=== PATIENT | female | born 1930 | race Caucasian/White ===

== ENCOUNTER → 2016-03-30 12:59 | Outpatient (CLI) | payer MEDICARE ==
[2012-10-15 09:25] VITALS: BMI 27.8
[~2016-03-30 12:59] MED LIST: ASPIRIN EC81 MG PO; BENICAR HCT 20-1 TA1 PO; CALCIUM 600+D T1 TA1; CORDARONE200 MG PO; LOPRESSOR25 MG PO; MULTI-DAY VITAM1 TAB PO; PROTONIX40 MG PO; SINGULAIR10 MG PO; VALIUM 2 MG TAB2 MG OR; VENTOLIN HFA18 GM; XARELTO15 MG PO
== END | disposition home or self-care (01) ==
LOC: D.RAD 12:59
DX: R13.10 Dysphagia, unspecified (principal)

== ENCOUNTER 2016-06-13 08:00 | Outpatient (CLI) | payer MEDICARE ==
[~2016-06-13] VITALS: Ht 162.6 cm; Wt 72.7 kg
--- NOTE | ~2016-06-13 | HEMODYNAMI ---
PATIENT:JESE SQUIRES MEDICAL RECORD: [id number] : 30 LOCATION:[facility] ADMISSION DATE: 06/13/16 Generatedon:06/13/201612:26 Patient name: JESE SQUIRES Patient #: [id number] SSN: D OB: 1930 Date of study: 06/13/2016 Page: Of Hemodynamic Procedure Report Patient Data Patient Demographics Procedure consent was obtained First Name: JESE Gender: Female Last Name: SHAW : 1930 [facility] Initial: ISABELLA Age: 85 year(s) Patient #: [id number] Race: Unknown Additional ID: [id number] Contact details [address]: [address] [place] [address] State: [place] City: [place] Zip code: [address] Past Medical History Allergies Allergen Reaction Date Comments Reported Other allergy 06/13/2016 Ketorolac tromethamine (from Toradol), predinisone Codeine 06/13/2016 Penicillins 06/13/2016 Sulfa drugs 06/13/2016 Admission Admission Data Admission Date: 06/13/2016 Admission Time: 8:00 Height (in.): 64 BSA: 1.78 (m2) Height (cm.): 162.56 BMI: 27.46 (kg/m2) Weight (lbs.): 160 Weight (kg.): 72.57 Lab Results Lab Result Date: 06/13/2016 Lab Result Time: 0:00 Biochemistry Name Units Result Min Max BUN mg/dl 10 --(-*--)-- 7 18 CK-MB ng/ml 2 --(--*-)-- 0 3.6 Creatinine mg/dl 0.9 --(-*--)-- 0.6 1.3 Creatinine l 67 --(*---)-- 21 215 Kinase Troponin l ng/ml 0.017 --(-*--)-- 0 0.06 CBC Name Units Result Min Max Hematocrit % 30.2 *-(----)-- 42 54 Hemoglobin g/dl 9.8 *-(----)-- 13.5 17.5 Procedure Procedure Types Cath Procedure Diagnostic Procedure [facility] w/Coronaries FFR/IVUS Intra-Coronary IVUS Initial Miscellaneous Procedures Moderate Sedation up to 15 minutes Procedure Description Procedure Date Procedure Date: 06/13/2016 Procedure Start Time: 12:11 Procedure End Time: 12:25 Procedure Staff Name Function Daniel Liu MD Performing Physician Moe Candelaria RT Scrub Salvatore Ray RN Nurse Melissa Guzman RT Monitor Procedure Data Cath Procedure Fluoroscopy Diagnostic fluoroscopy Total fluoroscopy Time: 3.1 time: 3.1 min min Diagnostic fluoroscopy Total fluoroscopy dose: 378 dose: 378 mGy mGy Contrast Material Contrast Material Type Amount (ml) Isovue 300 78 Entry Location Entry Primary Successful Side Size Upsize Upsize Entry Closure Vila ccessful Closure Location (Fr) 1 (Fr) 2 (Fr) Remarks Device Remarks Radial Right 6 Fr Mechanical No Charge artery Short Compression Medtronic Tracelet device used. Estimated blood loss: 5 ml Diagnostic catheters Device Type Used For End Catheter Placement Terumo 5Fr [place] 110cm LV Angiography catheter Terumo 5Fr [place] 110cm Left Coronary catheter Angiography Terumo 5Fr [place] 110cm Right Coronary catheter Angiography Procedure Complications No complications Procedure Medications Medication Administration Route Dosage Oxygen NC 2 l/min Heparin Flush Bag added to field 2 bags (1000units/500ml NS) 0.9% NaCl I.V. 100 ml/hr Radial Cocktail added to field 1 syringe (Verapomil 2mg/Nitro 400mcg/Heparin 1500units) Fentanyl I.V. 25 mcg Versed I.V. 0.5 mg Fentanyl I.V. 25 mcg Versed I.V. 0.5 mg Radial Cocktail I.A. 1 syringe (Verapomil 2mg/Nitro 400mcg/Heparin 1500units) Fentanyl I.V. 25 mcg Versed I.V. 0.5 mg Fentanyl I.V. 25 mcg Versed I.V. 0.5 mg Hemodynamics Rest BSA: 1.78 (m2) HGB: 9.8 (g/dl) O2 Consumption: Estimated: 159.92 (ml/min) O2 Con sumption indexed: Estimated:89.84 (ml/min/m) Heart Rate: 73 (bpm) Snapshots Pre Cath Intra NCS Post Cath Vital Signs Time Heart Resp SPO2 NIBP (mmHg) Rhythm Pain Sedation Rate (ipm) (%) Status Level (bpm) 11:56:52 78 17 99 137/67(91) NSR 0 (11) 10(A) , No pain 12:01:12 79 17 98 137/63(105) NSR 0 (11) 10(A) , No pain 12:05:32 76 18 98 132/61(88) NSR 0 (11) 10(A) , No pain 12:09:52 71 17 99 127/59(92) NSR 0 (11) 10(A) , No pain 12:14:11 82 17 98 117/54(80) NSR 0 (11) 9(A) , No pain 12:18:25 80 18 98 121/54(81) NSR 0 (11) 9(A) , No pain 12:22:41 76 18 98 111/53(90) NSR 0 (11) 9(A) , No pain Medications Time Medication Route Dose Verified Delivered Reason Notes Effectiveness by by 12:00:29 Oxygen NC 2 l/min Salvatore Chase Per Cory Ray RN physician RN 12:00:38 Heparin Flush added 2 bags Salvatore Chase used for Bag to Cory Ray television repair teacher (1000units/500ml field RN NS) 12:00:48 0.9% NaCl I.V. 100 Salvatore Chase Per ml/hr Cory Ray RN physician RN 12:00:59 Radial Cocktail added 1 Salvatore Hollisy used for (Verapomil to syringe Cory Ray television repair teacher 2mg/Nitro field RN 400mcg/Heparin 1500units) 12:08:47 Fentanyl I.V. 25 mcg Salvatore Salvatore for sedation Cory Ray RN RN 12:08:53 Versed I.V. 0.5 mg Salvatore Salvatore for sedation Cory Ray RN RN 12:10:26 Fentanyl I.V. 25 mcg Salvatore Salvatore for sedation Cory Ray RN RN 12:10:30 Versed I.V. 0.5 mg Salvatore Salvatore for sedation Cory Ray RN RN 12:11:58 Radial Cocktail I.A. 1 Salvatore Sanchez for (Verapomil syringe Cory Liu MD vasodilation 2mg/Nitro RN 400mcg/Heparin 1500units) 12:12:07 Fentanyl I.V. 25 mcg Salvatore Salvatore for sedation Cory Ray RN RN 12:12:12 Versed I.V. 0.5 mg Salvatore Salvatore for sedation Cory Ray RN RN 12:17:31 Fentanyl I.V. 25 mcg Salvatore Chase for sedation Cory Ray RN RN 12:17:33 Versed I.V. 0.5 mg Salvatore Chase for sedation Cory Ray RN board certified behavioral analyst Log Time Note 11:33:04 Salvatore Ray RN sent for patient. Start room use. 11:38:54 Patient Height : 162.56 cm 11:38:57 Patient Weight : 72.57 kg 11:39:44 Lab Result : Creatinine 0.9 mg/dl 11:39:44 Lab Result : BUN 10 mg/dl 11:39:44 Lab Result : Hemoglobin 9.8 g/dl 11:39:44 Lab Result : Hematocrit 30.2 % 11:39:44 Lab Result : CK-MB 2 ng/ml 11:39:44 Lab Result : Creatinine Kinase 67 l 11:39:44 Lab Result : Troponin l 0.017 ng/ml 11:41:07 Patient allergic to Other allergy Ketorolac tromethamine (from Toradol), predinisone 11:41:11 Patient allergic to Codeine 11:41:14 Patient allergic to Penicillins 11:41:18 Patient allergic to Sulfa drugs 11:43:05 Time tracking: Regular hours 11:43:09 Plan of Care:Hemodynamics will remain stable., Cardiac rhythm will remain stable., Comfort level will be maintained., Respiratory function will remain adequate., Patient/ family verbilizes understanding of procedure., Procedure tolerated without complication., Recovers from procedure without complications.. 11:47:36 Patient received from Pre/Post Procedure Room to CCL 2 Alert and oriented. Tansferred to table in Supine position. 11:47:37 Warm blankets applied, and maximino hugger turned on for patient comfort. 11:47:37 Correct patient and procedure confirmed by team. 11:47:42 Signed procedure consent form obtained from patient. 11:47:43 ECG and BP/O2 sat monitors applied to patient. 11:47:44 Full Disclosure recording started 11:55:45 Vital chart was started 11:56:29 Baseline sample Acquired. 11:56:31 Rhythm: sinus rhythm 12:00:16 H&P Date Dictated: 05/31/2016 Within 30 days and on chart., H&P Addendum completed by physician on day of procedure. (MUST COMPLETE FOR ALL OUTPATIENTS). 12:00:17 Pre-procedure instructions explained to patient. 12:00:17 Pre-op teaching completed and patient verbalized understanding. 12:00:23 Family in patients room. 12:00:24 Patient NPO since Midnight. 12:00:27 Is the patient allergic to Iodine/contrast media? No. 12:00:29 Oxygen 2 l/min NC was administered by Salvatore Ray RN; Per physician; 12:00:31 Is patient on blood thinner?Yes 12:00:34 ACC The patient was administered the following blood thiners within the last 24 hours: Xarelto 12:00:38 Heparin Flush Bag (1000units/500ml NS) 2 bags added to field was administered by Salvatore Ray RN; used for procedure; 12:00:38 Patient diabetic? No. 12:00:48 0.9% NaCl 100 ml/hr I.V. was administered by Salvatore Ray RN; Per physician; 12:00:59 Radial Cocktail (Verapomil 2mg/Nitro 400mcg/Heparin 1500units) 1 syringe added to field was administered by Salvatore Ray RN; used for procedure; 12:02:56 Previous problem with sedation/anesthesia? No ? 12:02:58 Snore? No 12:03:00 Sleep apnea? No 12:03:02 Deviated septum? No 12:03:03 Opens mouth fully? Yes 12:03:04 Sticks out tongue? Yes 12:03:05 Airway obstruction? No ? 12:03:08 Dentures? No ? 12:03:18 Pre procedure: right dorsailis pedis pulse 2+ Normal; easily identifiable; not easily obliterated 12:03:20 Modified Jomar's test Ulnar < 7 seconds 12:03:22 Patient pain scale 0/10 ?. 12:03:28 IV patent on arrival in left hand with 0.9% NaCl at [facility]. 12:03:34 Lab results completed and on chart. 12:03:37 Right Radial & Right Groin area was prepped with chlora-prep and draped in sterile fashion 12:03:38 Alarms reviewed by R. N. 12:03:39 Sharps counted by scrub and verified by R.N. 12:03:41 Use device set Radial Dx 12:03:42 Acist Syringe opened to sterile field. 12:03:42 Medline Cath Pack opened to sterile field. 12:03:42 Bag Decanter opened to sterile field. 12:03:43 Terumo 6Fr Slender Glidesheath opened to sterile field. 12:03:43 St Dilan 260cm J .035 wire opened to sterile field. 12:03:44 Acist Hand Control opened to sterile field. 12:03:44 Acist Manifold opened to sterile field. 12:03:44 Tegaderm 4 x 4 opened to sterile field. 12:03:45 MBrace Wrist Support opened to sterile field. 12:08:21 Final Timeout: patient, procedure, and site verified with staff and physician. All members of the team are in agreement. 12:08:24 Right Radial site verified by team. 12:08:27 Physical assessment completed. ASA score P 2 - A patient with mild systemic disease as per Daniel Liu MD. 12:08:30 Sedation plan: IV Moderate Sedation Versed, Fentanyl 12:08:47 Fentanyl 25 mcg I.V. was administered by Salvatore Ray RN; for sedation; 12:08:53 Versed 0.5 mg I.V. was administered by Salvatore Ray RN; for sedation; 12:10:26 Fentanyl 25 mcg I.V. was administered by Salvatore Ray RN; for sedation; 12:10:30 Versed 0.5 mg I.V. was administered by Salvatore Ray RN; for sedation; 12:11:31 Procedure started. 12:11:37 Local anesthetic to right radial artery with Lidocaine 2% by Daniel Liu MD.INITIAL ACCESS ONLY 12:11:44 A 6 Fr Short sheath was inserted into the Right Radial artery 12:11:46 Zero performed for pressure channel P1 12:11:52 Zero performed for pressure channel P1 12:11:58 Radial Cocktail (Verapomil 2mg/Nitro 400mcg/Heparin 1500units) 1 syringe I.A. was administered by Daniel Liu MD; for vasodilation; 12:12:07 Fentanyl 25 mcg I.V. was administered by Salvatore Ray RN; for sedation; 12:12:12 Versed 0.5 mg I.V. was administered by Salvatore Ray RN; for sedation; 12:12:14 A Terumo 5Fr [place] 110cm catheter was advanced over the wire and used for LV Angiography. 12:12:47 LV gram done using STANLEY 12:12:50 Injector settings: Ml/sec: 5, Volume: 15, 12:13:00 EF : 55 % 12:13:08 A Terumo 5Fr [place] 110cm catheter was advanced over the wire and used for Left Coronary Angiography. 12:13:42 Woven Systems BasixCompak Inflation Kit opened to sterile field. 12:13:43 Montgomery Whisper J 300cm 0.014 guide wire opened to sterile field. 12:13:52 A Terumo 5Fr [place] 110cm catheter was advanced over the wire and used for Right Coronary Angiography. 12:15:09 Catheter removed. 12:15:15 Roseboom [place] Eagleye IVUS Catheter opened to sterile field. 12:15:37 Cordis 6FR XBLAD 3.5 guide catheter opened to sterile field. 12:16:53 6 Fr XBLAD 3.5 guide catheter was inserted over the wire 12:17:31 Fentanyl 25 mcg I.V. was administered by Salvatore Ray RN; for sedation; 12:17:33 Versed 0.5 mg I.V. was administered by Salvatore Ray RN; for sedation; 12:17:37 Whisper wire advanced. 12:18:39 IVUS catheter advanced over wire. 12:19:28 IVUS pass to LAD lesion performed. 12:19:29 IVUS catheter removed over wire. 12:19:37 Wire removed. 12:19:38 Guide catheter removed. 12:20:18 Sheath removed intact; hemostasis achieved with Mechanical Compression to the Right Radial artery. 12:20:34 Procedure ended.(Physican Out) 12:20:54 Fluoroscopy time 03.10 minutes. 12:20:57 Fluoroscopy dose: 378 mGy 12:20:57 Flurop Dose total: 378 12:21:03 Contrast amount:Isovue 300 78ml. 12:21:04 Sharps counted by scrub and verified by R.N. 12:21:44 TRAclet compression device applied to right radial with 10cc air. --No Charge-- 12:22:03 Insertion/operative site no bleeding no hematoma. 12:22:08 Post right radial artery:stable, clean and dry 12:22:09 Post Procedure Pulses reassessed and unchanged 12:22:12 Post-procedure physical assessment completed. ASA score P 2 - A patient with mild systemic disease as per Daniel Liu MD. 12:22:14 Post procedure rhythm: unchanged. 12:22:16 Estimated blood loss: 5 ml 12:22:17 Post procedure instruction explained to patient.Patient verbalizes understanding. 12:22:17 Patient needs reinforcement of post procedure teaching. 12:22:36 Procedure type changed to Cath procedure, Diagnostic procedure, LHC, LHC w/Coronaries, FFR/IVUS, Intra-Coronary IVUS Initial, Miscellaneous Procedures, Moderate Sedation up to 15 minutes 12:22:41 Procedure Complication : No complications 12:23:26 See physician's report for complete and final results. 12:24:25 Procedure and supply charges have been captured, reviewed, submitted and are correct. 12:25:14 Vital chart was stopped 12:25:16 Report given to Pre/Post Procedure Room. 12:25:19 Patient transfered to Pre/Post Procedure Room with Stretcher. 12:25:29 Procedure ended. 12:25:29 Full Disclosure recording stopped 12:26:28 End room use (Document Last) Device Usage Item Name Manufacture Quantity Catalog Hospital Part Current Minimal Lot# / Number Charge Number Stock Stock Serial# Code Acist Acist 1 [id number] [id number] 163405 769143 20 Syringe Medical Systems Inc Medline Cardinal 1 [id number] 069958 84762 412966 5 Cath Pack Health Bag Microtek 1 2001S 763369 31196 030823 5 Dec[employer] [place] [employer] Inc. Terumo 6Fr Terumo 1 [id number] 596782 531493 269842 [address] Dil[address] St Dilan 1 607707 739006 702986 043443 30 260cm J .035 wire Acist Hand Acist 1 29483 561575 801125 135563 5 Control Medical Systems Inc Acist Acist 1 13573 359340 568932 355962 5 Manifold Medical Systems Inc Tegaderm 4 3M 1 1626W 475118 185422 710341 5 x 4 MBrace Advanced 1 140-0250-00 307773 37208 214435 5 Wrist Vascular Support Dynamics Terumo 5Fr Terumo 1 65-1063 623288 848058 596165 5 [place] 110cm catheter Merit Merit 1 SD5156 011817 176387 658950 15 BasixCompak Medical Inflation Kit Montgomery Montgomery 1 [id number] 712802 178923 600929 5 Whisper J Vascular 300cm 0.014 guide wire Roseboom Roseboom 1 [id number] 189211 098173 354407 8 [place] Eagleye IVUS Catheter Cordis 6FR Cardinal 1 [id number] 760002 203468 110116 10 [facility] 3.5 [facility] guide catheter Signature Audit [place] Stage Time Signature Unsigned Intra-Procedure 06/13/2016 Melissa 12:26:40 PM Counts RT(R) Signatures Monitor : Melissa Signature : Counts RT Date : Time : [place] [id number] [place] [address]
[~2016-06-13 08:00] MED LIST changes: -XARELTO15 MG PO
[2016-06-13] MEDS ORDERED: XARELTO15 MG PO (08:19)
[2016-06-13 08:24] VITALS: BP 141/56; Ht 162.6 cm; Wt 72.7 kg
[2016-06-13 08:47] LABS: BASOPHILS 0.7 % (0-2); EOSINOPHILS 3.3 % (0-7); HEMATOCRIT 30.2 % (36.0-48.0); HEMOGLOBIN 9.8 g/dL (12-16); LYMPHOCYTES 34.7 % (15-50); MCH 30.7 pg (26.0-34.0); MCHC 32.5 g/dL (31.0-37.0); MCV 94.7 fL (80.0-100.0); MONOCYTES 11.3 % (2-11); PLATELET COUNT 184 10x3/uL (130-400); RBC 3.19 10x6/uL (4.00-5.40); RDW 14.2 % (11.5-14.5)
[2016-06-13 09:22] LABS: CALC OSMOLALITY 270 mosm/kg (275-300); CARBON DIOXIDE 29.3 mmol/L (21.0-32.0); CHLORIDE - SERUM 100 mmol/L (98-107); CREATINE KINASE 67 UL (21-215); CREATININE - SERUM 0.9 mg/dL (0.6-1.3); GLUCOSE 92 mg/dL (74-106); SODIUM 136 mmol/L (136-145); UREA NITROGEN 10 mg/dL (7-18); eGFR NON AFRICAN AMERICAN 63 mL/min (90-120)
[2016-06-13 09:33] LABS: TROPONIN-I < 0.017 ng/mL (0.000-0.060)
--- NOTE | 2016-06-13 12:49 | NUR ---
VSS WITH CHEST PAIN DENIED O2 AT 2 LITERS NASAL. TR BAND TO R/WRIST CDI NO BLEEDING NO HEMATOMA NOTED. COBY HUGGER APPLIED
--- NOTE | 2016-06-13 14:18 | NUR ---
1330 SITTING UP IN BED, ALL VITALS WNL. ROOM AIR WITH NO DISTRESS. R WRIST TR BAND C/D/I WITH NO HEMATOMA OR BLEEDING. 1400 4CC AIR REMOVED FROM R WRIST TR BAND. WILL MONITOR CLOSELY FOR BLEEDING. 1415 2CC AIR REMOVED FROM R WRIST TR BAND. REMAINS C/D/I. SITTING UP IN BED WITH FEET DANGLING. ALL VITALS WNL. UP TO BEDSIDE TO DRESS, AMBULATED TO BATHROOM TO VOID.
--- NOTE | 2016-06-13 14:33 | NUR ---
TR BAND REMOVED, BLOOD REMOVED FROM WRIST. BANDAID AND COTTON BALL APPLIED TO AREA. D/C INSTRUCTIONS DISCUSSED WITH PATIENT AND SON AT BEDSIDE. WHEELED OUT VIA WHEELCHAIR.
--- NOTE | 2016-06-15 08:58 | OP ---
PATIENT NAME: JESE SQUIRES MEDICAL RECORD: [id number] :30 LOCATION:D.CAT ADMISSION DATE: SURGEON: ED RUIZ MD DATE OF OPERATION: 06/13/2016 PROCEDURES: 1. Left heart catheterization. 2. Selective coronary angiography. 3. Intravascular ultrasound of the LAD. 4. Left ventriculogram. PROCEDURE IN DETAIL: After informed consent was obtained and after a detailed explanation of the risks, benefits as well as alternative therapies, the patient elected to proceed with angiogram and heart catheterization. The right radial area was prepped and draped in normal sterile fashion. The right radial artery was cannulated via modified Seldinger technique with placement of 6-Maori sheath. All catheters exchanged through this sheath. FINDINGS: The left ventriculogram was performed in standard 30-degree STANLEY view, reveals good cardiac wall motion throughout all segments. Overall ejection fraction 50%. SELECTIVE CORONARY ANGIOGRAPHY: 1. Left main showed no significant angiographic disease. 2. Left anterior descending has moderate irregularities, but no flow-limiting stenosis. There is hazy area in the mid vessel; however, intravascular ultrasound revealed that this is no greater than 20% to 30%. 3. Left circumflex shows moderate irregularities, but no flow-limiting stenosis. 4. Right coronary has moderate irregularities, but no flow-limiting stenosis. OVERALL IMPRESSION: Minimal coronary artery disease is present. No flow-limiting stenosis. Continue medical management of the coronary artery disease and cardiac risk factors. TRANSINT:[id number] Voice Confirmation ID: [id number] DOCUMENT ID: [id number] ED RUIZ MD at 0858 CC: [id number] DICTATION DATE: 06/13/16 1223 COMMERCIAL ILLUSTRATOR: 06/13/16 1753 DEP CLI 06/13/16 [place] [address]
== END 2016-06-13 14:40 | disposition home or self-care (01) ==
LOC: D.CATH 08:00
PROVIDERS: Internal Medicine Interventional Cardiology
DX: I20.9 Angina pectoris, unspecified (principal); R94.30 Abnormal result of cardiovascular function study, unspecified; R06.02 Shortness of breath; I48.91 Unspecified atrial fibrillation; I34.0 Nonrheumatic mitral (valve) insufficiency; Z01.812 Encounter for preprocedural laboratory examination

== ENCOUNTER → 2018-02-21 13:36 | Outpatient (CLI) | payer MEDICARE ==
[2016-06-13 08:24] VITALS: BMI 27.5
[~2018-02-21 13:36] MED LIST changes: +XARELTO15 MG PO
== END | disposition home or self-care (01) ==
LOC: D.US 13:00
DX: M79.605 Pain in left leg (principal)

== ENCOUNTER 2019-02-15 11:33 | Inpatient (IN) | payer MEDICARE ==
[~2019-02-15] VITALS: Ht 162.6 cm; Wt 63.0 kg
[~2019-02-15 11:33] MED LIST changes: +FLUTICASONE PRO16 GM NASAL; +K-DUR20 MEQ PO; +NEXIUM40 MG PO; +PRESERVISION PO; +ZANTAC300 MG PO; +[UNRECOGNIZED DRUG - OTHER] PO
[2019-02-15 12:16] LABS: APPEARANCE HAZY (CLEAR); BILIRUBIN NEGATIVE (NEGATIVE); COLOR STRAW (YELLOW); GLUCOSE NEGATIVE (NEGATIVE); KETONE NEGATIVE (NEGATIVE); NITRITE POSITIVE (NEGATIVE); PROTEIN NEGATIVE (NEGATIVE); SPECIFIC GRAVITY 1.005 (1.005-1.020); UROBILINOGEN NORMAL (NORMAL)
[2019-02-15 12:20] LABS: RED CELLS - URINE NONE SEEN /hpf (0-5); WHITE CELLS - URINE 0-5 /hpf (NEGATIVE)
[2019-02-15 12:21] LABS: BACTERIA FEW /hpf (NEGATIVE); EPITHELIAL CELLS NSEEN /hpf (0-5)
--- NOTE | 2019-02-15 12:24 | NUR ---
NICKY STACK, AT BEDSIDE.
[2019-02-15 12:26] LABS: ANION GAP 13.4 mmol/L (8-16); BASOPHILS 0.7 % (0-2); CALCIUM 9.6 mg/dL (8.5-10.1); CARBON DIOXIDE 28.5 mmol/L (21.0-32.0); CREATININE - SERUM 1.2 mg/dL (0.6-1.3); EOSINOPHILS 3.4 % (0-7); HEMATOCRIT 34.4 % (36.0-48.0); HEMOGLOBIN 11.3 g/dL (12-16); IMMATURE GRANULOCYTES 0.2 % (0-5); LYMPHOCYTES 19.8 % (15-50); MCH 31.4 pg (26.0-34.0); MCHC 32.8 g/dL (31.0-37.0); MCV 95.6 fL (80.0-100.0); MEAN PLATELET VOLUME 9.3 fL (7.4-10.4); MONOCYTES 13.9 % (2-11); POTASSIUM - SERUM 3.9 mmol/L (3.5-5.1); RDW 14.1 % (11.5-14.5); WBC 4.1 10x3/uL (4.8-10.8)
[2019-02-15 12:29] LABS: PLATELET COUNT 206 10x3/uL (130-400)
[2019-02-15 12:30] VITALS: BP 142/58
[2019-02-15 12:41] LABS: ALBUMIN 3.3 g/dL (3.4-5.0); BILIRUBIN - TOTAL 0.78 mg/dL (0.2-1.3); PROTEIN - SERUM 6.4 g/dL (6.4-8.2); THYROID STIMULATING HORMONE 3.41 uIU/mL (0.36-3.74)
[2019-02-15 13:07] LABS: PRO BNP 2142 pg/mL (0-450); TROPONIN-I < 0.017 ng/mL (0.000-0.060)
[2019-02-15 13:52] LABS: MAGNESIUM - SERUM 2.2 mg/dL (1.8-2.4); PHOSPHOROUS 4.1 mg/dL (2.5-4.9)
--- NOTE | 2019-02-15 14:25 | NUR ---
RECIEVED TO ROOM 2220 VIA STRETCHER FROM ER. A/O X3. FAMILY AT BEDSIDE. SKIN IS INTACT WITHOUT REDNESS. C/O INTENSE BACK PAIN LEVEL 8. WILL MONITOR. DENIES NEEDS.
[2019-02-15] MEDS ORDERED: BACLOFEN10 MG PO (14:33)
[2019-02-15] MEDS ORDERED: HYDROCODON-ACE1 EAC7 PO (14:34)
[2019-02-15] MEDS ORDERED: FUROSEMIDE20 MG PO (14:36)
[2019-02-15 14:38] VITALS: BP 94/46; BMI 23.9
--- NOTE | 2019-02-15 16:40 | NUR ---
INCONTINENT OF URINE, SKIN CARE PER FAMILY. PURE WICK PLACED WITHOUT DIFFICULTY. WILL MONITOR.
[2019-02-15 19:17] LABS: APTT 33.4 SECONDS (22.8-39.4); INR 1.36 (0.85-1.17); PROTIME 16.2 SECONDS (11.6-15.0)
[2019-02-15 19:30] VITALS: BP 120/60
--- NOTE | 2019-02-15 19:40 | NUR ---
PATIENT ALERT AND ORIENTED. COMPLAINING OF BACK PAIN AT THIS TIME. ADMINISTERED DILAUDID PRN PER ORDER. PATIENT TOLERATED WELL. STATES SEVERAL TIMES "THOSE DOCTORS BETTER DO SOMETHING TOMORROW ABOUT MY STRICTURES OR I AM GOING TO [place]. TELL EVERYONE SO THEY KNOW." CALMED PATIENT AND LISTENED TO CONCERNS. PATIENT APPEARS AGGITATED WITH ILLNESS. PATIENT HAS LEFT FORERARM IV THAT IS PATENT AND INFUSING NS. DENIES FURTHER NEEDS AT THIS TIME. CALL LIGHT, CELL PHONE, WATER, AND [place] IN REACH. CPOC.
--- NOTE | 2019-02-16 02:07 | NUR ---
I have reviewed this patient and I concur with the Shift Assessment completed by the Licensed Practical Nurse today this shift.
--- NOTE | 2019-02-16 04:50 | NUR ---
NEW ORDERS OF NPO PUT IN AT 0447. PATIENT HAS BEEN EATING ICE CHIPS AND DRINKING WATER THROUGH OUT NIGHT. ALL CUPS AND WATER HAVE BEEN REMOVED FROM ROOM AND PATIENT HAS BEEN MADE AWARE OF NPO STATUS. CONSENTS HAVE BEEN SIGNED PER ORDER FOR EGD WITH CHARLES
[2019-02-16 05:31] VITALS: BP 133/45
[2019-02-16 05:32] LABS: BASOPHILS 0.5 % (0-2); EOSINOPHILS 4.9 % (0-7); HEMATOCRIT 31.5 % (36.0-48.0); IMMATURE GRANULOCYTES 0.3 % (0-5); LYMPHOCYTES 27.4 % (15-50); MCH 30.6 pg (26.0-34.0); MCHC 31.7 g/dL (31.0-37.0); MCV 96.3 fL (80.0-100.0); MEAN PLATELET VOLUME 9.3 fL (7.4-10.4); MONOCYTES 15.4 % (2-11); NEUTROPHILS 51.5 % (40-80); PLATELET COUNT 211 10x3/uL (130-400); RBC 3.27 10x6/uL (4.00-5.40); RDW 14.3 % (11.5-14.5); WBC 3.7 10x3/uL (4.8-10.8)
[2019-02-16 06:08] LABS: ANION GAP 10.5 mmol/L (8-16); CALCIUM 8.7 mg/dL (8.5-10.1); CARBON DIOXIDE 30.2 mmol/L (21.0-32.0); CREATININE - SERUM 1.1 mg/dL (0.6-1.3); MAGNESIUM - SERUM 2.1 mg/dL (1.8-2.4); POTASSIUM - SERUM 3.7 mmol/L (3.5-5.1)
--- NOTE | 2019-02-16 06:50 | NUR ---
ALERT, WITH CONFUSION AT TIMES. GRAND TRAVERSE. NO C/O PAIN. NO S/S OF ACUTE DISTRESS NOTED. UP WITH ASSIST. PUREWICK IN PLACE. IV TO RIGHT FOREARM, D5NS INFUSING @ 75ML/HR. SITE PATENT WITHOUT REDNESS OR SWELLING. DENIES ANY NEEDS AT THIS TIME. CALL LIGHT IN REACH. WILL CONTINUE TO MONITOR.
--- NOTE | 2019-02-16 12:21 | NUR ---
ALERT WITH SOME CONFUSION AT TIMES. NO C/O PAIN. NO S/S OF ACUTE DISTRESS NOTED. VERY [place]. UP WITH ASSIST. PUREWICK IN PLACE. IV TO RIGHT FOREARM, D5NS INFUSING @ 75ML/HR. SITE PATENT WITHOUT REDNESS OR SWELLING. SCHEDULED FOR EGD TODAY. DENIES ANY NEEDS AT THIS TIME. CALL LIGHT IN REACH. WILL CONTINUE TO MONITOR.
[2019-02-16 13:07] VITALS: BP 123/62
[2019-02-16 13:41] VITALS: BMI 23.8
--- NOTE | 2019-02-16 15:48 | NUR ---
I have reviewed this patient and I concur with the Shift Assessment completed by the Licensed Practical Nurse today this shift.
[2019-02-16 16:40] VITALS: BP 127/61
--- NOTE | 2019-02-16 19:40 | NUR ---
PT SITTING UP IN BED WITHOUT DISTRESS, ORIENTED TO SELF, PLACE AND TIME. CONFUSED TO SITUATION AT TIMES. IV LEFT FA INFUSING D5 1/2NS @ 50. DAUGHTER AT BEDSIDE. PROVIDED ICE CHIPS, TOLERATING LIQUIDS, ONLY COMPLAINT IS OF SORE THROAT. DENIES OTHER NEEDS. CL IN REACH, WILL CTM
[2019-02-16 20:30] VITALS: BP 118/45
[2019-02-17 00:22] VITALS: BP 130/51
[2019-02-17 04:45] VITALS: BP 166/58
[2019-02-17 05:32] LABS: BASOPHILS 0.3 % (0-2); EOSINOPHILS 4.5 % (0-7); HEMATOCRIT 31.8 % (36.0-48.0); IMMATURE GRANULOCYTES 0.3 % (0-5); LYMPHOCYTES 17.5 % (15-50); MCH 30.8 pg (26.0-34.0); MCHC 32.1 g/dL (31.0-37.0); MCV 96.1 fL (80.0-100.0); MEAN PLATELET VOLUME 9.4 fL (7.4-10.4); MONOCYTES 15.3 % (2-11); NEUTROPHILS 62.1 % (40-80); PLATELET COUNT 204 10x3/uL (130-400); RBC 3.31 10x6/uL (4.00-5.40); RDW 14.3 % (11.5-14.5); WBC 3.8 10x3/uL (4.8-10.8)
[2019-02-17 05:46] LABS: ANION GAP 10.3 mmol/L (8-16); CALCIUM 8.8 mg/dL (8.5-10.1); CARBON DIOXIDE 28.3 mmol/L (21.0-32.0); CREATININE - SERUM 0.9 mg/dL (0.6-1.3); MAGNESIUM - SERUM 2.1 mg/dL (1.8-2.4); POTASSIUM - SERUM 3.6 mmol/L (3.5-5.1)
[2019-02-17 06:51] LABS: HEMOGLOBIN 10.3 g/dL (12-16)
[2019-02-17 09:19] VITALS: BP 128/62
[2019-02-17 13:53] VITALS: BP 108/67
[2019-02-17 18:05] VITALS: BP 110/60
--- NOTE | 2019-02-17 18:55 | NUR ---
PATIENT RESTING IN BED. NO ACUTE S/S OF DISTRESS. NO C/O AT THIS TIME. PT HAS R FOREARM IV D5 1/2 @ 50 ML/HR. IV SITE IS PATENT WITH NO REDNESS, SWELLING, OR TEDNERNESS. PT HAS L EAR HEARING AID, AND WEARS GLASSES. PT HAS A PURWICK EXTERNAL CATHETER. PT REPORTS PAIN ON R SIDE WHEN MOVING. CALL LIGHT IN PLACE. WILL CONTINUE MONITOR.
[2019-02-17 19:30] VITALS: BP 120/64
[2019-02-18 00:30] VITALS: BP 186/73
--- NOTE | 2019-02-18 03:35 | NUR ---
I have reviewed this patient and I concur with the Shift Assessment completed by the Licensed Practical Nurse today this shift.
[2019-02-18 05:30] VITALS: BP 172/70
[2019-02-18 06:26] LABS: BASOPHILS 0.1 % (0-2); EOSINOPHILS 1.2 % (0-7); HEMATOCRIT 37.3 % (36.0-48.0); HEMOGLOBIN 12.1 g/dL (12-16); IMMATURE GRANULOCYTES 0.3 % (0-5); LYMPHOCYTES 10.6 % (15-50); MCH 30.9 pg (26.0-34.0); MCHC 32.4 g/dL (31.0-37.0); MCV 95.2 fL (80.0-100.0); MEAN PLATELET VOLUME 9.4 fL (7.4-10.4); MONOCYTES 11.9 % (2-11); NEUTROPHILS 75.9 % (40-80); PLATELET COUNT 202 10x3/uL (130-400); RBC 3.92 10x6/uL (4.00-5.40); RDW 14.3 % (11.5-14.5)
[2019-02-18 06:33] LABS: WBC 6.9 10x3/uL (4.8-10.8)
[2019-02-18 06:52] LABS: ANION GAP 12.7 mmol/L (8-16); CARBON DIOXIDE 27.5 mmol/L (21.0-32.0); CREATININE - SERUM 0.9 mg/dL (0.6-1.3); MAGNESIUM - SERUM 1.8 mg/dL (1.8-2.4); POTASSIUM - SERUM 3.2 mmol/L (3.5-5.1)
[2019-02-18 07:05] LABS: % SATURATION 15 % (15-55); IRON 39 ug/dl (35-150); TOTAL IRON BIND CAPACITY 251 ug/dl (260-445); UNSAT IRON BIND CAPACITY 212 ug/dl (150-375)
[2019-02-18 08:08] VITALS: BP 172/76
--- NOTE | 2019-02-18 11:08 | NUR ---
PT C/O LEG PAIN, ADMINISTERED PRN PAIN MEDICATION AT 0850 AND ADVISED TO EARLY TO GIVE ANY MORE BUT CAN GIVE TYLENOL. ALSO GAVE PT HEATING PAD TO APPLY TO ACHING LEGS, FAMILY AND FRIENDS AT BEDSIDE, NO OTHER NEEDS VOICED, CONTINUE WITH PLAN OF CARE
[2019-02-18 12:18] VITALS: BP 144/71
[2019-02-18 17:08] VITALS: BP 167/62
--- NOTE | 2019-02-18 17:51 | NUR ---
I have reviewed this patient and I concur with the Shift Assessment completed by the Licensed Practical Nurse today this shift.
[2019-02-18 20:00] VITALS: BP 142/55
--- NOTE | 2019-02-18 21:22 | NUR ---
PATIENT IS IN BED RESTING WITH EYES OPEN. NO ACUTE S/S OF DISTRES. PATIENT COMPLAINS OF PAIN IN THE L KNEE AND R ABDOMEN/RIBS. PATIENT WAS GIVEN BACLOFEN WITH NIGHT TIME MEDS. PATIENTS IV IS IN THE L FOREARM D5 1/2 @ 50 ML/HR. IV IS PATENT WITHOUT REDNESS, SWELLING, OR TENDERNESS. PATIENT IS CONFUSED TO SITUATION. TELEMTRY IS CONTROLLED A-FIB AT 82 BPM. PATIENT USES A HEARING AID IN L EAR. PATIENT WEARS GLASSES.
--- NOTE | 2019-02-18 22:29 | NUR ---
PATIENT WAS PUT ON 2L O2 SAT AT 88 TO 89. PATIENT WAS BUMPED UP TO 3L O2 SAT @ 93. PATIENT HAS ANXIETY INDUCED BREATHING PROBLEMS, THAT RESOLVE WHEN SOOTHED. CALL LIGHT IN PLACE. WILL CONTINUE TO MONITOR.
[2019-02-19] VITALS: BP 134/69
--- NOTE | 2019-02-19 03:27 | NUR ---
I have reviewed this patient and I concur with the Shift Assessment completed by the Licensed Practical Nurse today this shift.
[2019-02-19 04:51] LABS: BASOPHILS 0.2 % (0-2); EOSINOPHILS 1.2 % (0-7); HEMATOCRIT 33.6 % (36.0-48.0); HEMOGLOBIN 11.2 g/dL (12-16); IMMATURE GRANULOCYTES 0.5 % (0-5); LYMPHOCYTES 11.3 % (15-50); MCH 31.6 pg (26.0-34.0); MCHC 33.3 g/dL (31.0-37.0); MCV 94.9 fL (80.0-100.0); MEAN PLATELET VOLUME 9.3 fL (7.4-10.4); MONOCYTES 13.2 % (2-11); NEUTROPHILS 73.6 % (40-80); PLATELET COUNT 225 10x3/uL (130-400); RBC 3.54 10x6/uL (4.00-5.40); RDW 14.1 % (11.5-14.5); WBC 6.5 10x3/uL (4.8-10.8)
[2019-02-19 05:14] LABS: ANION GAP 11.8 mmol/L (8-16); CALCIUM 8.8 mg/dL (8.5-10.1); CREATININE - SERUM 0.8 mg/dL (0.6-1.3); MAGNESIUM - SERUM 1.8 mg/dL (1.8-2.4)
[2019-02-19 05:22] LABS: POTASSIUM - SERUM 2.8 mmol/L (3.5-5.1)
--- NOTE | 2019-02-19 07:41 | NUR ---
FAMILY AT BEDSIDE. PT IS WITHOUT DISTRESS.FALL PREVENTION IN PLACE
[2019-02-19 09:01] VITALS: BP 155/77
--- NOTE | 2019-02-19 10:01 | NUR ---
SPOKE TO PT DAUGHTER AND SON WHO ARE POA OF PT AND BOTH WISHED FOR PT TO BE DNR, HAD PAPERWORK COMPLETED PENDING SIGNATURE, PT TO HAVE SWALLOW STUDY THIS AFTERNOON, XRAYS HAVE BEEN COMPLETED, NO NEEDS VOICED FROM PT NO S/SX OF DISTRESS, CONTINUE WITH PLAN OF CARE
--- NOTE | 2019-02-19 10:37 | NUR ---
PT LYING IN BED WITH HOB AT 45 DEGREES, PT STATES IT IS VERY HARD FOR HER TO SWALLOW, PT HAS EXPIRATORY WHEEZING MORE SO IN RI GHT UPPER LOBES, GAVE PT INCENTIVE SPIROMETER WILL CONTINUE TO MONITOR
--- NOTE | 2019-02-19 12:06 | NUR ---
NUTRITION F/U PT REMAINS ON FULL LIQUID DIET. NURSING REPORTS PT C/O DIFFICULTY SWALLOWING. SCHEDULED FOR MBSS TODAY. WILL AWAIT RESULTS AND PROVIDE DIET ACCORDINGLY. ASSIST WITH NUTRITION SUPPORT IF NEEDED. RD FOLLOWING
--- NOTE | 2019-02-19 12:26 | MORECARE ---
CASE MANAGEMENT DISCHARGE SUMMARY PATIENT: JESE SQUIRES UNIT: [id number] ADM DATE: 02/15/19 AGE: 88 : 30 SEX: F ROOM/BED: D.2220 AUTHOR: SONYA,DOC PHYSICIAN: REFERRING PHYSICIAN: BRANDY IBARRA MD DATE OF SERVICE: 02/19/19 Discharge Plan Patient Name: JESE SQUIRES Facility: [facility]:[place] : 1930 Planned Disposition: [facility] Facility Anticipated Discharge Date: Discharge Date: Expected LOS: Initial Reviewer: [email or web address] Initial Review Date: 02/19/2019 Generated: 02/19/19 1:26 pm DCPIA - Discharge Planning Initial Assessment Updated by [email or web address]: Crystal Chou on 02/19/19 12:25 pm * Is the patient Alert and Oriented? No * How many steps to enter\exit or inside your home? 1/0 * PCP Dr. Santizo * Pharmacy [facility] * Preadmission Environment Home Alone * ADLs Partial Dependent * Partial ADLs (Assistance needed) Ambulation * Equipment Cane Walker Wheelchair * List name and contact numbers for known caregivers / representatives who currently or will assist patient after discharge: Ko Squires - son - [phone] Fahad Chowdary [facility] - [phone] * Verbal permission to speak to the caregivers and representatives has been obtained from the patient. Yes * Community resources currently utilized None * Additional services required to return to the preadmission environment? Yes * Can the patient safely return to the preadmission environment? No * Has this patient been hospitalized within the prior 30 days at any hospital? No External Providers External Provider: [facility] Next Contact Date: Service Request Date: Service Type: Resolution: Reviewer: Comments: Coverage Notice Reviewer: [id number] - Crystal Chou Notice Issued Date-Time: 02/19/2019 12:22 Notice Type: Patient Choice Letter Notice Delivered To: Family Member Relationship to Patient: Son Poultry Barn Manager Name: Ko Squires Delivery Method: HAND - Hand Delivered Marisol Days: Prior Verbal Notification: Recipient Understood Notice: Yes Recipient Signature: Yes Med Rec Note Co-signed by Attending: Coverage Notice Comment: [facility] Patient Name: JESE SQUIRES Page [id number] at 1226 All edits/amendments must be made on the electronic document DICTATION DATE: 02/19/19 1226 ADULT BASIC EDUCATION INSTRUCTOR: ASHLEY 02/19/19 1226 RPT#: [id number] DC DATE: STATUS: ADM IN [facility] [address] [place] [address] END OF REPORT
--- NOTE | 2019-02-19 12:34 | MORECARE ---
CASE MANAGEMENT DISCHARGE SUMMARY PATIENT: JESE SQUIRES UNIT: [id number] ADM DATE: 02/15/19 AGE: 88 : 30 SEX: F ROOM/BED: D.2220 AUTHOR: SONYA,DOC PHYSICIAN: REFERRING PHYSICIAN: BRANDY IBARRA MD DATE OF SERVICE: 02/19/19 Discharge Plan Patient Name: JESE SQUIRES Facility: [facility]:[place] : 1930 Planned Disposition: Half-Way Facility Anticipated Discharge Date: Discharge Date: Expected LOS: Initial Reviewer: [email or web address] Initial Review Date: 02/19/2019 Generated: 02/19/19 1:33 pm Comments DCP- Discharge Planning Updated by [id number]: Crystal Chou on 02/19/19 11:[address] Patient Name: JESE SQUIRES Admission Status: ER Accout number: [id number] Admission Date: 02-15-2019 : 1930 Admission Diagnosis: Attending: BRANDY IBARRA Current LOS: 4 Anticipated DC Date: Planned Disposition: Half-Way Facility Primary Insurance: HU[employer]NA CHOICE PPO MCR ADVANT Discharge Planning Comments: CM met with patient and her son to discuss discharge planning. Patient is drowsy during the assessment. Patient lives alone at home. Son states she had a kyphoplasty about 6 weeks ago, and has not really bounced back from having the Kyphoplasty. CM discussed availability of inpatient rehab, SNF, home health and additional DME needs. Son states they would like a referral to [facility] and [facility]. He states he has already spoken to the income tax administrator there. ADRIANNE signed for [facility]. I called and spoke to cynthia Palacios for [facility], and clinical faxed. CM will continue to follow and assist with discharge planning/needs. Clinical Asst: Crystal Chou DCPIA - Discharge Planning Initial Assessment Updated by [email or web address]: Crystal Chou on 02/19/19 12:25 pm * Is the patient Alert and Oriented? No * How many steps to enter\exit or inside your home? 1/0 * PCP Dr. Santizo * Pharmacy [facility] * Preadmission Environment Home Alone * ADLs Partial Dependent * Partial ADLs (Assistance needed) Ambulation * Equipment Cane Walker Wheelchair * List name and contact numbers for known caregivers / representatives who currently or will assist patient after discharge: Ko Squires - son - [phone] Fahad Chowdary [facility] - [phone] * Verbal permission to speak to the caregivers and representatives has been obtained from the patient. Yes * Community resources currently utilized None * Additional services required to return to the preadmission environment? Yes * Can the patient safely return to the preadmission environment? No * Has this patient been hospitalized within the prior 30 days at any hospital? No Coverage Notice Reviewer: [email or web address] Wilfrid Chou Notice Issued Date-Time: 02/19/2019 12:22 Notice Type: Patient Choice Letter Notice Delivered To: Family Member Relationship to Patient: Son Riding Coach Name: Ko Squires Delivery Method: HAND - Hand Delivered Marisol Days: Prior Verbal Notification: Recipient Understood Notice: Yes Recipient Signature: Yes Med Rec Note Co-signed by Attending: Coverage Notice Comment: [facility] Last DP export: 02/19/19 11:26 am Patient Name: JESE SQUIRES Page [id number] at 1234 All edits/amendments must be made on the electronic document DICTATION DATE: 02/19/19 1233 VASCULAR SURGEON: ASHLEY 02/19/19 1233 RPT#: [id number] DC DATE: STATUS: ADM IN [facility] [address] [place] [address] END OF REPORT
[2019-02-19 12:36] VITALS: BP 142/60
--- NOTE | 2019-02-19 15:03 | MORECARE ---
CASE MANAGEMENT DISCHARGE SUMMARY PATIENT: JESE SQUIRES UNIT: [id number] ADM DATE: 02/15/19 AGE: 88 : 30 SEX: F ROOM/BED: D.2220 AUTHOR: SONYA,DOC PHYSICIAN: REFERRING PHYSICIAN: BRANDY IBARRA MD DATE OF SERVICE: 02/19/19 Discharge Plan Patient Name: JESE SQUIRES Facility: [facility]:[place] : 1930 Planned Disposition: Mcfp Facility Anticipated Discharge Date: Discharge Date: Expected LOS: Initial Reviewer: [email or web address] Initial Review Date: 02/19/2019 Generated: 02/19/19 4:02 pm DCP- Discharge Planning Updated by [email or web address]: Crystal Chou on 02/19/19 11:[address] Patient Name: JESE SQUIRES Admission Status: ER Accout number: [id number] Admission Date: 02-15-2019 : 1930 Admission Diagnosis: Attending: BRANDY IBARRA Current LOS: 4 Anticipated DC Date: Planned Disposition: Mcfp Facility Primary Insurance: HU[employer] CHOICE PPO MCR ADVANT Discharge Planning Comments: CM met with patient and her son to discuss discharge planning. Patient is drowsy during the assessment. Patient lives alone at home. Son states she had a kyphoplasty about 6 weeks ago, and has not really bounced back from having the Kyphoplasty. CM discussed availability of inpatient rehab, SNF, home health and additional DME needs. Son states they would like a referral to [facility] and Rehab. He states he has already spoken to the sr. unix system administrator there. ADRIANNE signed for [facility]. I called and spoke to cynthia Palacios for [facility], and clinical faxed. CM will continue to follow and assist with discharge planning/needs. Credit Professional: Crystal Chou DCPIA - Discharge Planning Initial Assessment Updated by [email or web address]: Crystal Chuo on 02/19/19 12:25 pm * Is the patient Alert and Oriented? No * How many steps to enter\exit or inside your home? 1/0 * PCP Dr. Santizo * Pharmacy [facility] * Preadmission Environment Home Alone * ADLs Partial Dependent * Partial ADLs (Assistance needed) Ambulation * Equipment Cane Walker Wheelchair * List name and contact numbers for known caregivers / representatives who currently or will assist patient after discharge: Ko Squires - son - [phone] [facility] - [phone] * Verbal permission to speak to the caregivers and representatives has been obtained from the patient. Yes * Community resources currently utilized None * Additional services required to return to the preadmission environment? Yes * Can the patient safely return to the preadmission environment? No * Has this patient been hospitalized within the prior 30 days at any hospital? No External Providers External Provider: OTHER-OTHER Next Contact Date: Service Request Date: Service Type: Resolution: Reviewer: Comments: Coverage Notice Reviewer: [email or web address] Wilfrid Chou Notice Issued Date-Time: 02/19/2019 12:22 Notice Type: Patient Choice Letter Notice Delivered To: Family Member Relationship to Patient: Son Hydroelectric Production Manager Name: Ko Squires Delivery Method: HAND - Hand Delivered Marisol Days: Prior Verbal Notification: Recipient Understood Notice: Yes Recipient Signature: Yes Med Rec Note Co-signed by Attending: Coverage Notice Comment: ADRIANNE for [facility] Last DP export: 02/19/19 11:34 am Patient Name: JESE SQUIRES Page [phone] at 1503 All edits/amendments must be made on the electronic document DICTATION DATE: 02/19/19 1502 CLINICAL DATA ASSISTANT: ASHLEY 02/19/19 1502 RPT#: [id number] DC DATE: STATUS: ADM IN [facility] [address] [place] [address] END OF REPORT
[2019-02-19 16:40] VITALS: BP 161/64
[2019-02-19 20:00] VITALS: BP 153/65
--- NOTE | 2019-02-20 03:46 | NUR ---
PT RESTING IN BED. EYES CLOSED. NO SIGNS OF DISTRESS. BREATHING EVEN AND UNLABORED. 2LO2 NASAL CANNULA. IV SITE LT F DRESSING CLEAN DRY AND INTACT. NO SIGNS OF INFECTION. TELE MONITOR ON 98 CONTROLLED A-FIB. LUNG SOUNDS WHEEZING. BOWEL SOUNDS ACTIVE. PURE WIK IN PLACE. NO LOWER LEG SWELLING PRESENT. WILL CONTINUE PLAN OF CARE CALL LIGHT IN REACH. BED LOWERED AND LOCKED BED RAILS UPX2. TIA ALARM ON. YELLOW GOWN ON.
[2019-02-20 04:00] VITALS: BP 157/76
--- NOTE | 2019-02-20 04:20 | NUR ---
I have reviewed this patient and I concur with the Shift Assessment completed by the Licensed Practical Nurse today this shift.
[2019-02-20 05:18] LABS: BASOPHILS 0.2 % (0-2); EOSINOPHILS 0.9 % (0-7); HEMATOCRIT 32.7 % (36.0-48.0); HEMOGLOBIN 11.1 g/dL (12-16); IMMATURE GRANULOCYTES 0.3 % (0-5); LYMPHOCYTES 7.9 % (15-50); MCH 31.6 pg (26.0-34.0); MCHC 33.9 g/dL (31.0-37.0); MCV 93.2 fL (80.0-100.0); MONOCYTES 11.9 % (2-11); NEUTROPHILS 78.8 % (40-80); PLATELET COUNT 190 10x3/uL (130-400); RBC 3.51 10x6/uL (4.00-5.40); RDW 13.9 % (11.5-14.5); WBC 5.7 10x3/uL (4.8-10.8)
[2019-02-20 06:16] LABS: CALCIUM 8.6 mg/dL (8.5-10.1); CARBON DIOXIDE 24.9 mmol/L (21.0-32.0); CREATININE - SERUM 0.8 mg/dL (0.6-1.3); MAGNESIUM - SERUM 1.7 mg/dL (1.8-2.4); POTASSIUM - SERUM 3.9 mmol/L (3.5-5.1)
--- NOTE | 2019-02-20 08:06 | MORECARE ---
CASE MANAGEMENT DISCHARGE SUMMARY PATIENT: JESE SQUIRES UNIT: [id number] ADM DATE: 02/15/19 AGE: 88 : 30 SEX: F ROOM/BED: D.2220 AUTHOR: SONYA,DOC PHYSICIAN: REFERRING PHYSICIAN: BRANDY IBARRA MD DATE OF SERVICE: 02/20/19 Discharge Plan Patient Name: JESE SQUIRES Facility: [facility]:[place] : 1930 Planned Disposition: Senior Living Facility Anticipated Discharge Date: Discharge Date: Expected LOS: Initial Reviewer: [email or web address] Initial Review Date: 02/19/2019 Generated: 02/20/19 9:06 am Comments DCP- Discharge Planning Updated by [id number]: Crystal Chou on 02/20/19 7:[address] Updated clinical faxed to [facility]. They will accept when medically stable for discharge, family notified. CM will continue to follow and assist with discharge planning/needs. DCP- Discharge Planning Updated by [id number]: Crystal Chou on 02/19/19 11:[address] Patient Name: JESE SQUIRES Admission Status: ER Accout number: [id number] Admission Date: 02-15-2019 : 1930 Admission Diagnosis: Attending: BRANDY IBARRA Current LOS: 4 Anticipated DC Date: Planned Disposition: Senior Living Facility Primary Insurance: [employer] CHOICE PPO MCR ADVANT Discharge Planning Comments: CM met with patient and her son to discuss discharge planning. Patient is drowsy during the assessment. Patient lives alone at home. Son states she had a kyphoplasty about 6 weeks ago, and has not really bounced back from having the Kyphoplasty. CM discussed availability of inpatient rehab, SNF, home health and additional DME needs. Son states they would like a referral to [facility]. He states he has already spoken to the front office administrator there. ADRIANNE signed for [place]. I called and spoke to cynthia Palacios for [place], and clinical faxed. CM will continue to follow and assist with discharge planning/needs. Inside Sales Recruiter: Crystal Chou DCPIA - Discharge Planning Initial Assessment Updated by [email or web address]: Crystal Chou on 02/19/19 12:25 pm * Is the patient Alert and Oriented? No * How many steps to enter\exit or inside your home? 1/0 * PCP Dr. Santizo * Pharmacy [facility] * Preadmission Environment Home Alone * ADLs Partial Dependent * Partial ADLs (Assistance needed) Ambulation * Equipment Cane Walker Wheelchair * List name and contact numbers for known caregivers / representatives who currently or will assist patient after discharge: Ko Squires - son - [phone] Fahad Chowdary [facility] - [phone] * Verbal permission to speak to the caregivers and representatives has been obtained from the patient. Yes * Community resources currently utilized None * Additional services required to return to the preadmission environment? Yes * Can the patient safely return to the preadmission environment? No * Has this patient been hospitalized within the prior 30 days at any hospital? No Coverage Notice Reviewer: [id number] - Crystal José Antonio Notice Issued Date-Time: 02/19/2019 12:22 Notice Type: Patient Choice Letter Notice Delivered To: Family Member Relationship to Patient: Son Rehabilitation Program Coordinator Name: Ko Squires Delivery Method: HAND - Hand Delivered Marisol Days: Prior Verbal Notification: Recipient Understood Notice: Yes Recipient Signature: Yes Med Rec Note Co-signed by Attending: Coverage Notice Comment: [facility] Last DP export: 02/19/19 2:02 pm Patient Name: JESE SQUIRES Page [phone] at 0806 All edits/amendments must be made on the electronic document DICTATION DATE: 02/20/19 0806 INDUSTRIAL ROOFER HELPER: ASHLEY 02/20/19 08 RPT#: [id number] DC DATE: STATUS: ADM IN [facility] [address] [place] [address] END OF REPORT
[2019-02-20 08:49] VITALS: BP 131/81
--- NOTE | 2019-02-20 09:24 | NUR ---
NUTRITION F/U PT REPORTS SHE WAS ONLY ABLE TO EAT A FEW BITES OF BREAKFAST. STATES SHE IS LACTOSE INTOLERANT. ADDED INFORMATION TO DIET ORDER. RD FOLLOWING
[2019-02-20 12:49] VITALS: BP 118/61
[2019-02-20 17:50] VITALS: BP 118/68
--- NOTE | 2019-02-20 18:53 | NUR ---
REMAINS WITHOUT DISTRESS.PT HAD SOME NAUSEA EARLIER AT DINNER TIME.SHE IS WITHOUT CHANGE.CONT PLAN OF CARE
[2019-02-20 20:00] VITALS: BP 140/70
[2019-02-21 04:00] VITALS: BP 134/69
--- NOTE | 2019-02-21 04:08 | NUR ---
PT RESTING IN BED. EYES CLOSED. NO SIGNS OF DISTRESS. BREATHING EVEN AND UNLABORED. IV SITE RT FA DRESSING CLEAN DRY AND INTACT. NO SIGNS OF INFECTION OR INFULTRATION. BOWEL SOUNDS ACTIVE. LUNG SOUNDS WHEEZING PRESENT. 3LO2 NASAL CANNULA. SKIN CLEAN DRY AND INTACT. PURE WIK IN PLACE. WILL CONTINUE PLAN OF CARE. CALL LIGHT IN REACH. BED LOWERED AND LOCKED. BED RAILS UPX2. TIA ALARM ON. YELLOW GOWN ON.
--- NOTE | 2019-02-21 04:14 | NUR ---
I have reviewed this patient and I concur with the Shift Assessment completed by the Licensed Practical Nurse today this shift.
[2019-02-21 05:05] LABS: BASOPHILS 0.2 % (0-2); EOSINOPHILS 1.4 % (0-7); HEMATOCRIT 31.5 % (36.0-48.0); HEMOGLOBIN 10.3 g/dL (12-16); IMMATURE GRANULOCYTES 0.4 % (0-5); LYMPHOCYTES 10.2 % (15-50); MCH 30.9 pg (26.0-34.0); MCHC 32.7 g/dL (31.0-37.0); MCV 94.6 fL (80.0-100.0); MEAN PLATELET VOLUME 9.5 fL (7.4-10.4); NEUTROPHILS 74.8 % (40-80); PLATELET COUNT 218 10x3/uL (130-400); RBC 3.33 10x6/uL (4.00-5.40); WBC 5.7 10x3/uL (4.8-10.8)
[2019-02-21 05:30] LABS: ANION GAP 13.1 mmol/L (8-16); CALCIUM 8.6 mg/dL (8.5-10.1); CARBON DIOXIDE 25.8 mmol/L (21.0-32.0); CREATININE - SERUM 0.9 mg/dL (0.6-1.3); POTASSIUM - SERUM 3.9 mmol/L (3.5-5.1)
--- NOTE | 2019-02-21 07:10 | NUR ---
PT RESTING IN BED. NO SIGNS OF DISTRESS. IV TO RIGHT FORARM PATENT NO REDNESS OR TENDERNESS. ON 3L NC. ALL FALL PRECAUTIONS IN PLACE. DENIES ANY FURTHER NEED AT THIS TIME. CALL LIGHT IN REACH. BED LOW POSITION. NO FAMILY AT BEDSIDE AT THIS TIME.
[2019-02-21 10:12] VITALS: BP 138/70
[2019-02-21 13:40] VITALS: BP 130/71
[2019-02-21 16:45] VITALS: BP 121/63
--- NOTE | 2019-02-21 16:46 | NUR ---
I have reviewed this patient and I concur with the Shift Assessment completed by the Licensed Practical Nurse today this shift.
--- NOTE | 2019-02-21 18:38 | NUR ---
BLADDER SCAN SHOWS PATIENT TO HAVE 308 ML OF URINE IN BLADDER. WILL PLACE DICKSON FOR RETENTION
--- NOTE | 2019-02-21 18:45 | NUR ---
DICKSON PLACED. STERILE TECHNIQUE MAINTAINED. TOLERATED WELL. DICKSON BAG MEASURED AT 300 ML. CL IN REACH.
--- NOTE | 2019-02-21 19:17 | NUR ---
PATIENT ALERT AND ORIENTED. HOB ELEVATED TO A 20 DEGREE ANGLE. PATIENT ASKING ABOUT BACLOFEN. SPOKE WITH PATIENT ABOUT SCHEDULED ROBAXIN. PATIENT VERBALIZES UNDERSTANDING. REINFORCED TAPE TO RIGHT FOREARM IV. PATIENT REQUESTS CHAP STICK AND GERM EX, PROVIDED TO PATIENT. DENIES FURTHER NEEDS AT THIS TIME.FALL PRECAUTIONS IN PLACE. CALL LIGHT IN REACH. CPOC.
--- NOTE | 2019-02-21 19:18 | NUR ---
ADDENUM: PATIENT HAS DICKSON CATHETER THAT IS INFUSING CLEAR YELLOW URINE.
[2019-02-21 20:00] VITALS: BP 138/60
[2019-02-21 23:30] VITALS: BP 135/62
--- NOTE | 2019-02-22 01:51 | NUR ---
REPOSITIONED PATIENT. DENIES NEEDS AT THIS TIME. CALL LIGHT IN REACH. TIA ALARM ON.
--- NOTE | 2019-02-22 02:43 | NUR ---
I have reviewed this patient and I concur with the Shift Assessment completed by the Licensed Practical Nurse today this shift.
[2019-02-22 04:00] VITALS: BP 133/63
--- NOTE | 2019-02-22 05:50 | NUR ---
DICKSON CARE PROVIDED.
[2019-02-22 06:19] LABS: BASOPHILS 0.2 % (0-2); EOSINOPHILS 3.4 % (0-7); HEMATOCRIT 32.9 % (36.0-48.0); HEMOGLOBIN 10.8 g/dL (12-16); IMMATURE GRANULOCYTES 0.4 % (0-5); LYMPHOCYTES 16.7 % (15-50); MCHC 32.8 g/dL (31.0-37.0); MCV 94.5 fL (80.0-100.0); NEUTROPHILS 61.3 % (40-80); PLATELET COUNT 254 10x3/uL (130-400); RBC 3.48 10x6/uL (4.00-5.40); RDW 14.1 % (11.5-14.5); WBC 4.7 10x3/uL (4.8-10.8)
[2019-02-22 06:26] LABS: APPEARANCE HAZY (CLEAR); BILIRUBIN NEGATIVE (NEGATIVE); COLOR YELLOW (YELLOW); GLUCOSE NEGATIVE (NEGATIVE); KETONE NEGATIVE (NEGATIVE); NITRITE NEGATIVE (NEGATIVE); PROTEIN 2+ mg/dL (NEGATIVE); UROBILINOGEN NORMAL (NORMAL)
[2019-02-22 06:28] LABS: BACTERIA FEW /hpf (NEGATIVE); EPITHELIAL CELLS 0-5 /hpf (0-5)
[2019-02-22 06:40] LABS: ANION GAP 11.4 mmol/L (8-16); CALCIUM 8.7 mg/dL (8.5-10.1); CARBON DIOXIDE 26.1 mmol/L (21.0-32.0); CREATININE - SERUM 0.9 mg/dL (0.6-1.3); POTASSIUM - SERUM 3.5 mmol/L (3.5-5.1)
--- NOTE | 2019-02-22 07:40 | NUR ---
ALERT AND ORIENTED. LLL DIMINISHED. HEART SOUNDS S1 AND S2 HEARD IN ALL OLSON. BOWEL SOUNDS ACTIVE X 4. SKIN INTACT WITHOUT REDNESS. IV TO RFA PATENT WITHOUT REDNESS. TELEMETRY IN PLACE SHOWING 95 CONTROLLED AFIB ON MONITOR. DICKSON PATENT AND DRAINING YELLOW URINE. DENIES NEEDS. BED LOW. FALL PRECAUTIONS IN PLACE. CALL RAMOS AND PERSONAL ITEMS IN REACH. WILL CONTINUE TO MONITOR.
[2019-02-22 09:37] VITALS: BP 133/67
[2019-02-22 12:05] VITALS: BP 140/63
--- NOTE | 2019-02-22 13:28 | NUR ---
RESTING IN BED. SON AT BEDSIDE. DENIES NEEDS. WILL CONTINUE TO MONITOR.
[2019-02-22 15:58] VITALS: BP 154/64
--- NOTE | 2019-02-22 17:10 | NUR ---
RESTING IN BED. DENIES NEEDS. WILL CONTINUE TO MONITOR.
--- NOTE | 2019-02-22 19:15 | NUR ---
ALERT AND ORIENTED WITH HOB ELEVATED TO 40 DEGREE ANGLE. WEARING 3L NC. RIGHT FOREARM IV PATENT AND INFUSING D51/2 NS @ 30 AND PROCALAMINE AT 50. DICKSON CATHETER DRAINING YELLOW URINE. DENIES FURTHER NEEDS AT THIS TIME. CALL LGT REMAISN IN REACH OF PATIENT WELL KNLEENEX AND CHAP STICK. TIA ALARM IN PLACE. CPOC.
[2019-02-22 20:51] VITALS: BP 140/62
--- NOTE | 2019-02-22 23:47 | NUR ---
ASSISTED TO [facility]
[2019-02-23 00:21] VITALS: BP 130/70
--- NOTE | 2019-02-23 02:57 | NUR ---
RESTING WITH NO SIGNS OR SYMPTOMS OF DISTRESS AT THIS TIME. NC REMAINS IN PLACE. CALL LIGHT IN REACH. CPOC.
[2019-02-23 05:08] VITALS: BP 154/79
[2019-02-23 05:23] LABS: BASOPHILS 0.2 % (0-2); EOSINOPHILS 2.4 % (0-7); HEMATOCRIT 31.3 % (36.0-48.0); HEMOGLOBIN 10.5 g/dL (12-16); IMMATURE GRANULOCYTES 0.2 % (0-5); LYMPHOCYTES 15.9 % (15-50); MCH 31.1 pg (26.0-34.0); MCHC 33.5 g/dL (31.0-37.0); MCV 92.6 fL (80.0-100.0); MONOCYTES 17.6 % (2-11); NEUTROPHILS 63.7 % (40-80); PLATELET COUNT 243 10x3/uL (130-400); RBC 3.38 10x6/uL (4.00-5.40)
[2019-02-23 05:33] LABS: WBC 5.9 10x3/uL (4.8-10.8)
[2019-02-23 05:39] LABS: ANION GAP 10.5 mmol/L (8-16); CALCIUM 8.6 mg/dL (8.5-10.1); CREATININE - SERUM 0.9 mg/dL (0.6-1.3); POTASSIUM - SERUM 3.5 mmol/L (3.5-5.1)
--- NOTE | 2019-02-23 05:44 | NUR ---
I have reviewed this patient and I concur with the Shift Assessment completed by the Licensed Practical Nurse today this shift.
--- NOTE | 2019-02-23 08:00 | NUR ---
PATIENT IN BED WITH IV INTACT. NO COMPLAINTS OR SIGNS OF DISTRESS. CALL LIGHT WITHIN REACH.
[2019-02-23 08:23] VITALS: BP 143/59
--- NOTE | 2019-02-23 09:30 | NUR ---
PATIENT ASSISTED UP TO CHAIR BY CNAS AT THIS TIME. PATIENT HAS NO COMPLAINTS OR SIGNS OF DISTRESS. REFUSING TO EAT AND NOT TAKING PILLS VERY WELL. WILL CONTINUE TO MONITOR. CALL LIGHT WITHIN REACH.
[2019-02-23 11:53] VITALS: Ht 162.6 cm; Wt 63.0 kg
[2019-02-23 12:29] VITALS: BP 143/68
--- NOTE | 2019-02-23 12:42 | MORECARE ---
CASE MANAGEMENT DISCHARGE SUMMARY PATIENT: JESE SQUIRES UNIT: [id number] ADM DATE: 02/15/19 AGE: 88 : 30 SEX: F ROOM/BED: D.2220 AUTHOR: SONYADOC PHYSICIAN: REFERRING PHYSICIAN: BRANDY IBARRA MD DATE OF SERVICE: 02/23/19 Discharge Plan Patient Name: JESE SQUIRES Facility: [facility]:[place] : 1930 Planned Disposition: Half-Way Facility Anticipated Discharge Date: Discharge Date: Expected LOS: Initial Reviewer: [email or web address] Initial Review Date: 02/19/2019 Generated: 02/23/19 1:41 pm DCP- Discharge Planning Updated by [email or web address]: Crystal Chou on 02/20/19 7:[address] Updated clinical faxed to [facility]. They will accept when medically stable for discharge, family notified. CM will continue to follow and assist with discharge planning/needs. DCP- Discharge Planning Updated by [email or web address]: Crystal Chou on 02/19/19 11:[address] Patient Name: JESE SQUIRES Admission Status: ER Accout number: [id number] Admission Date: 02-15-2019 : 1930 Admission Diagnosis: Attending: BRANDY IBARRA Current LOS: 4 Anticipated DC Date: Planned Disposition: Half-Way Facility Primary Insurance: HU[employer] CHOICE PPO MCR ADVANT Discharge Planning Comments: CM met with patient and her son to discuss discharge planning. Patient is drowsy during the assessment. Patient lives alone at home. Son states she had a kyphoplasty about 6 weeks ago, and has not really bounced back from having the Kyphoplasty. CM discussed availability of inpatient rehab, SNF, home health and additional DME needs. Son states they would like a referral to [facility] and Rehab. He states he has already spoken to the order administrator there. ADRIANNE signed for [place]. I called and spoke to cynthia Palacios for [place], and clinical faxed. CM will continue to follow and assist with discharge planning/needs. Emt/Paramedic: Crystal Chou DCPIA - Discharge Planning Initial Assessment Updated by [email or web address]: Crystal Chou on 02/19/19 12:25 pm * Is the patient Alert and Oriented? No * How many steps to enter\exit or inside your home? 1/0 * PCP Dr. Santizo * Pharmacy [facility] * Preadmission Environment Home Alone * ADLs Partial Dependent * Partial ADLs (Assistance needed) Ambulation * Equipment Cane Walker Wheelchair * List name and contact numbers for known caregivers / representatives who currently or will assist patient after discharge: Ko Squires - son - [phone] Fahad Chowdary DTR - [phone] * Verbal permission to speak to the caregivers and representatives has been obtained from the patient. Yes * Community resources currently utilized None * Additional services required to return to the preadmission environment? Yes * Can the patient safely return to the preadmission environment? No * Has this patient been hospitalized within the prior 30 days at any hospital? No External Providers External Provider: OTHER-OTHER Next Contact Date: Service Request Date: Service Type: Resolution: Reviewer: Comments: Coverage Notice Reviewer: [id number] - Crystal Chou Notice Issued Date-Time: 02/19/2019 12:22 Notice Type: Patient Choice Letter Notice Delivered To: Family Member Relationship to Patient: Son Elevator Repairer Name: Ko Squires Delivery Method: HAND - Hand Delivered Marisol Days: Prior Verbal Notification: Recipient Understood Notice: Yes Recipient Signature: Yes Med Rec Note Co-signed by Attending: Coverage Notice Comment: [facility] Last DP export: 02/20/19 7:06 am Patient Name: JESE SQUIRES Page [id number] at 1242 All edits/amendments must be made on the electronic document DICTATION DATE: 02/23/19 1241 FREIGHT AIR BRAKE FITTER: ASHLEY 02/23/19 1241 RPT#: [id number] DC DATE: STATUS: ADM IN [facility] [address] [place] [address] END OF REPORT
--- NOTE | 2019-02-23 12:51 | MORECARE ---
CASE MANAGEMENT DISCHARGE SUMMARY PATIENT: JESE SQUIRES UNIT: [id number] ADM DATE: 02/15/19 AGE: 88 : 30 SEX: F ROOM/BED: D.2220 AUTHOR: SONYA,DOC PHYSICIAN: REFERRING PHYSICIAN: BRANDY IBARRA MD DATE OF SERVICE: 02/23/19 Discharge Plan Patient Name: JESE SQUIRES Facility: [facility]:[place] : 1930 Planned Disposition: Alf Facility Anticipated Discharge Date: Discharge Date: Expected LOS: Initial Reviewer: [id number] Initial Review Date: 02/19/2019 Generated: 02/23/19 1:50 pm Comments DCP- Discharge Planning Updated by [email or web address]: Queta Pena on 02/23/19 11:[address] SPOKE WITH PATIENT AND DAUGHTER ABOUT DC PLAN, THEY WOULD LIKE TO GO TO [facility] IN [place], [place]. I CALLED [facility] AND SPOKE WITH LEIF ([phone]) AND FAXED REFERRAL TO [phone]. ADRIANNE SIGNED AND PLACED ON CHART. CM WILL CONTINUE TO FOLLOW AND ASSIST WITH DC PLANNIGN DCP- Discharge Planning Updated by [email or web address]: Crystal Chou on 02/20/19 7:[address] Updated clinical faxed to [facility]. They will accept when medically stable for discharge, family notified. CM will continue to follow and assist with discharge planning/needs. DCP- Discharge Planning Updated by [id number]: Crystal Chou on 02/19/19 11:[address] Patient Name: JESE SQUIRES Admission Status: ER Accout number: [id number] Admission Date: 02-15-2019 : 1930 Admission Diagnosis: Attending: BRANDY IBARRA Current LOS: 4 Anticipated DC Date: Planned Disposition: Alf Facility Primary Insurance: [employer] CHOICE PPO MCR ADVANT Discharge Planning Comments: CM met with patient and her son to discuss discharge planning. Patient is drowsy during the assessment. Patient lives alone at home. Son states she had a kyphoplasty about 6 weeks ago, and has not really bounced back from having the Kyphoplasty. CM discussed availability of inpatient rehab, SNF, home health and additional DME needs. Son states they would like a referral to [facility]. He states he has already spoken to the fleet administrator there. ADRIANNE signed for [facility]. I called and spoke to cynthia Palacios for [facility], and clinical faxed. CM will continue to follow and assist with discharge planning/needs. Pigment Supplier: Crystal Chou DCPIA - Discharge Planning Initial Assessment Updated by [id number]: Crystal Chou on 02/19/19 12:25 pm * Is the patient Alert and Oriented? No * How many steps to enter\exit or inside your home? 10 * PCP Dr. Santizo * Pharmacy [facility] * Preadmission Environment Home Alone * ADLs Partial Dependent * Partial ADLs (Assistance needed) Ambulation * Equipment Cane Walker Wheelchair * List name and contact numbers for known caregivers / representatives who currently or will assist patient after discharge: Ko Squires - son - [phone] F[facility]ad [facility] - [phone] * Verbal permission to speak to the caregivers and representatives has been obtained from the patient. Yes * Community resources currently utilized None * Additional services required to return to the preadmission environment? Yes * Can the patient safely return to the preadmission environment? No * Has this patient been hospitalized within the prior 30 days at any hospital? No Coverage Notice Reviewer: [id number] - Crystal Bhandarikayla Notice Issued Date-Time: 02/19/2019 12:22 Notice Type: Patient Choice Letter Notice Delivered To: Family Member Relationship to Patient: Son Software Validation Technician Name: Ko Squires Delivery Method: HAND - Hand Delivered Marisol Days: Prior Verbal Notification: Recipient Understood Notice: Yes Recipient Signature: Yes Med Rec Note Co-signed by Attending: Coverage Notice Comment: ADRIANNE for [facility] Reviewer: [id number] - Queta Pena Notice Issued Date-Time: 02/23/2019 11:20 Notice Type: Patient Choice Letter Notice Delivered To: Patient Relationship to Patient: Software Validation Technician Name: Delivery Method: HAND - Hand Delivered Marisol Days: Prior Verbal Notification: Recipient Understood Notice: Yes Recipient Signature: Yes Med Rec Note Co-signed by Attending: Coverage Notice Comment: PT CHOICE LETTER TO [facility] DP export: 02/23/19 11:42 am Patient Name: JESE SQUIRES Page 07118 at 1251 All edits/amendments must be made on the electronic document DICTATION DATE: 02/23/19 125 BOILER RELINER: ASHLEY 02/23/19 125 RPT#: [id number] DC DATE: STATUS: ADM IN [facility] [address] [place] [address] END OF REPORT
--- NOTE | 2019-02-23 13:26 | NUR ---
Nutrition follow-up: Visited with pt during breakfast. Pt only took 2 very small bites of food and said she was done. Pt did not want to eat anything else. Pt told me that was enough food for now. Diet: regular mechanical soft Megace started ProcalAmine PPN started @ 50 ml/hr Pt appears to be scared to eat; afraid it will come back up (her words) Pt yahaira benefit from a PEG tube placement and nutrition support. 24 hour calorie count in progress. RDN following.
--- NOTE | 2019-02-23 13:50 | NUR ---
PATIENT ASSISTED BACK TO BED AT THIS TIME. PATIENT STATED READY TO REST AT THIS TIME. IV INTACT. CALL LIGHT WITHIN REACH.
[2019-02-23 17:08] VITALS: BP 134/63
--- NOTE | 2019-02-23 17:20 | NUR ---
SPOKE TO LYUBOV ABOUT ORDER TO CALL CARDIOLOGY ABOUT PATIENT AFIB. PATIENT ON XARELTO AND HAD METOPROLOL PRN FOR HR GREATER THAN 100. PATIENT HAS NOT BEEN OVER 100 FOR 24 HOURS ACCORDING TO VS. LAST PULSE TAKEN WAS 95. NO METOPROLOL REQUIRED. PATIENT STATED SHE JUST WANTS TO SLEEP. MEDS GIVEN. IV INTACT. CALL LIGHT WITHIN REACH.
--- NOTE | 2019-02-23 18:50 | NUR ---
OT NOTE: PT PRESENTED UPRIGHT IN CHAIR. PT COMPLETED SIT TO STAND WITH MOD A X2. PT COMPLETED ADL MOB WITH MOD A X2. PT COMPLETED BUE AROM WITH TASKS. PT COMPLETED FACE WASH WITH SET UP IN CHAIR. PT EXHIBITED INCREASED FUNCTIONAL ABILITY TODAY. [id number] THANK YOU, ELIEZER ANDREW
--- NOTE | 2019-02-23 19:30 | NUR ---
RESTING QUIETLY IN BED. IV TO RIGHT FA IS PATENT WITH FLUIDS INFUSING VIA ORDERS. CATHETER IS DRAINING BLOODY URINE TO CDS VIA GRAVITY. DENIES PAIN AT THIS TIME.
[2019-02-23 21:35] VITALS: BP 120/60
--- NOTE | 2019-02-23 22:00 | NUR ---
ALERT TO PERSON, PLACE ENVIRONMENT. PLEASANT MOOD AND AFFECT. ABLE TO VOICE ALL NEEDS. CALL LIGHT IN PLACE.
--- NOTE | 2019-02-24 00:37 | NUR ---
AT 2337, PT HR 105 UNCONTROLLED AFIB. PRN LOPRESSOR GIVEN HR IS 97 AT THIS TIME.
[2019-02-24 00:54] VITALS: BP 147/68
--- NOTE | 2019-02-24 02:15 | NUR ---
CONFUSED ON TIME AND DATE. THINKS ITS IN AFTERNOON, ATTEMPTED TO REDIRECT. SEMI SUCCESSFUL.
[2019-02-24 05:16] VITALS: BP 157/85
[2019-02-24 06:41] LABS: ANION GAP 13.8 mmol/L (8-16); CALCIUM 8.8 mg/dL (8.5-10.1); CARBON DIOXIDE 24.9 mmol/L (21.0-32.0); CREATININE - SERUM 0.8 mg/dL (0.6-1.3); POTASSIUM - SERUM 3.7 mmol/L (3.5-5.1)
[2019-02-24 06:46] LABS: BASOPHILS 0.3 % (0-2); EOSINOPHILS 1.7 % (0-7); HEMATOCRIT 34.1 % (36.0-48.0); HEMOGLOBIN 11.5 g/dL (12-16); IMMATURE GRANULOCYTES 0.6 % (0-5); LYMPHOCYTES 7.6 % (15-50); MCH 30.9 pg (26.0-34.0); MCHC 33.7 g/dL (31.0-37.0); MCV 91.7 fL (80.0-100.0); MEAN PLATELET VOLUME 9.3 fL (7.4-10.4); MONOCYTES 17.3 % (2-11); NEUTROPHILS 72.5 % (40-80); PLATELET COUNT 285 10x3/uL (130-400); RBC 3.72 10x6/uL (4.00-5.40); WBC 7.1 10x3/uL (4.8-10.8)
--- NOTE | 2019-02-24 07:41 | NUR ---
ALERT AND ORIENTED TO SELF. LUNGS DIMINISHED TO BLL. HEART SOUNDS S1 AND S2 HEARD IN ALL OLSON. BOWEL SOUNDS ACTIVE X 4. SKIN INTACT WITHOUT REDNESS. IV PATENT WITHOUT REDNESS TO RFA. O2 IN PLACE AT 2L NC. BED LOW. TIA ALARM ON. FALL PRECAUTIONS IN PLACE. CALL RAMOS AND PERSONAL ITEMS IN REACH. WILL CONTINUE TO MONITOR.
[2019-02-24 07:54] VITALS: BP 176/82
--- NOTE | 2019-02-24 08:17 | NUR ---
24 hour calorie count 02/23/19: kcal protein Breakfast 75 5 Lunch 25 2 Dinner 30 4 ____ Total 130 kcal 11 gm protein Pt not meeting estimated energy needs with current po intake. Recommend nutrition support - PEG tube vs NGT placement. RDN following.
--- NOTE | 2019-02-24 12:24 | NUR ---
PATIENT 95 CONTROLLED AFIB ON TELEMETRY.
--- NOTE | 2019-02-24 12:34 | NUR ---
RESTING IN BED. FAMILY AT BEDSIDE. WILL CONTINUE TO MONITOR.
--- NOTE | 2019-02-24 12:50 | MORECARE ---
CASE MANAGEMENT DISCHARGE SUMMARY PATIENT: JESE SQUIRES UNIT: [id number] ADM DATE: 02/15/19 AGE: 88 : 30 SEX: F ROOM/BED: D.2220 AUTHOR: SONYA,DOC PHYSICIAN: REFERRING PHYSICIAN: BRANDY IBARRA MD DATE OF SERVICE: 02/24/19 Discharge Plan Patient Name: JESE SQUIRES Facility: [facility]:[place] : 1930 Planned Disposition: Fci Facility Anticipated Discharge Date: Discharge Date: Expected LOS: Initial Reviewer: [email or web address] Initial Review Date: 02/19/2019 Generated: 02/24/19 1:50 pm Comments DCP- Discharge Planning Updated by [email or web address]: Queta Pena on 02/24/19 11:[address] PATIENT WILL BE ACCEPTED TO [facility] IN [place], BUT WILL NEED TO KNOW IF SHE THINKS SHE COULD TRANSPORT IN WHEELCHAIR FOR A [address] CM TO FOLLOW AND ASSIST DCP- Discharge Planning Updated by [id number]: Queta Pena on 02/23/19 11:[address] SPOKE WITH PATIENT AND DAUGHTER ABOUT DC PLAN, THEY WOULD LIKE TO GO TO [facility] IN [place], [place]. I CALLED [facility] AND SPOKE WITH LEIF ([phone]) AND FAXED REFERRAL TO [phone]. ADRIANNE SIGNED AND PLACED ON CHART. CM WILL CONTINUE TO FOLLOW AND ASSIST WITH DC PLANNIGN DCP- Discharge Planning Updated by [email or web address]: Crystal Chou on 02/20/19 7:[address] Updated clinical faxed to [facility]. They will accept when medically stable for discharge, family notified. CM will continue to follow and assist with discharge planning/needs. DCP- Discharge Planning Updated by [id number]: Crystal Chou on 02/19/19 11:[address] Patient Name: JESE SQUIRES Admission Status: ER Accout number: [id number] Admission Date: 02-15-2019 : 1930 Admission Diagnosis: Attending: BRANDY IBARRA Current LOS: 4 Anticipated DC Date: Planned Disposition: Fci Facility Primary Insurance: [employer] CHOICE PPO MCR ADVANT Discharge Planning Comments: CM met with patient and her son to discuss discharge planning. Patient is drowsy during the assessment. Patient lives alone at home. Son states she had a kyphoplasty about 6 weeks ago, and has not really bounced back from having the Kyphoplasty. CM discussed availability of inpatient rehab, SNF, home health and additional DME needs. Son states they would like a referral to [facility]. He states he has already spoken to the asset administrator there. ADRIANNE signed for [facility]. I called and spoke to cynthia Palacios for [facility], and clinical faxed. CM will continue to follow and assist with discharge planning/needs. Machine Setter Supervisor: Crystal José Antonio [facility] - Discharge Planning Initial Assessment Updated by [id number]: Crystal Chou on 02/19/19 12:25 pm * Is the patient Alert and Oriented? No * How many steps to enter\exit or inside your home? 10 * PCP Dr. Santizo * Pharmacy [facility] * Preadmission Environment Home Alone * ADLs Partial Dependent * Partial ADLs (Assistance needed) Ambulation * Equipment Cane Walker Wheelchair * List name and contact numbers for known caregivers / representatives who currently or will assist patient after discharge: Ko Squires - son - [phone] Fahad Chowdary [facility] - [phone] * Verbal permission to speak to the caregivers and representatives has been obtained from the patient. Yes * Community resources currently utilized None * Additional services required to return to the preadmission environment? Yes * Can the patient safely return to the preadmission environment? No * Has this patient been hospitalized within the prior 30 days at any hospital? No Coverage Notice Reviewer: [id number] - Crystal Chou Notice Issued Date-Time: 02/19/2019 12:22 Notice Type: Patient Choice Letter Notice Delivered To: Family Member Relationship to Patient: Son Dock Coordinator Name: Ko Squires Delivery Method: HAND - Hand Delivered Marisol Days: Prior Verbal Notification: Recipient Understood Notice: Yes Recipient Signature: Yes Med Rec Note Co-signed by Attending: Coverage Notice Comment: [facility] Reviewer: [id number] Wilfrid Pena Notice Issued Date-Time: 02/23/2019 11:20 Notice Type: Patient Choice Letter Notice Delivered To: Patient Relationship to Patient: Dock Coordinator Name: Delivery Method: HAND - Hand Delivered Marisol Days: Prior Verbal Notification: Recipient Understood Notice: Yes Recipient Signature: Yes Med Rec Note Co-signed by Attending: Coverage Notice Comment: PT CHOICE LETTER [facility] DP export: 02/23/19 11:51 am Patient Name: JESE SQUIRES Page 99995 at 1250 All edits/amendments must be made on the electronic document DICTATION DATE: 02/24/19 1250 TANK FARM OPERATOR: ASHLEY 02/24/19 1250 RPT#: [id number] DC DATE: STATUS: ADM IN [facility] [address] [place] [address] END OF REPORT
--- NOTE | 2019-02-24 15:54 | NUR ---
OT NOTE: MOD ASSIST X 2 FOR SIT TO STAND.. PT LEANING WAY BACK INTO EXTENSION..AMB WITH MOD ASSIST X 2 WITH WALKER X APPROX 3-4 FT. ASSISTED BACK TO CHAIR WITH MAX ASSIST. MAX ASSIST WITH TRANSFER TO BED AND MAX ASSIST WITH BED MOB; PT REMAINS WITH POOR APPETITE AND VERY WEAK. KEATON HORN, OTR/L
--- NOTE | 2019-02-24 17:00 | NUR ---
OT NOTE: PT COMPLETED SIT TO STAND WITH MOD A. PT COMPLETED ADL MOB WITH MOD/MIN A. PT REQUIRED MAX A FOR LB HYGIENE TASKS. PT COMPLETED UE AROM AXS WITH FUNCTIONAL TASKS. [id number] THANK YOU, ELIEZER ANDREW
[2019-02-24 17:53] VITALS: BP 116/68
--- NOTE | 2019-02-24 18:08 | NUR ---
SITTING IN CHAIR AT BEDSIDE. DENIES NEEDS. WILL CONTINUE TO MONITOR.
--- NOTE | 2019-02-24 18:39 | NUR ---
RESTING IN BED. DENIES NEEDS. FAMILY AT BEDSIDE. BED LOW. FALL PRECAUTIONS IN PLACE. CALL RAMOS AND PERSONAL ITEMS IN REACH. WILL CONTINUE TO MONITOR.
--- NOTE | 2019-02-24 19:40 | NUR ---
RESTING IN BED WITH FAMILY AT BEDSIDE. PLEASANT MOOD. STATES SHE NO LONGER WANTS TO EAT, SHES READY TO GO TO [facility] AND LET GOD HAVE HER. SHE IS HAPPY AND CONTENT WITH THIS DECISION AND THE FAMILY AGREES. WILL NOTE ANY CHANGE.
[2019-02-24 22:05] VITALS: BP 124/80
--- NOTE | 2019-02-25 01:12 | NUR ---
I have reviewed this patient and I concur with the Shift Assessment completed by the Licensed Practical Nurse today this shift.
[2019-02-25 01:30] VITALS: BP 125/55
--- NOTE | 2019-02-25 03:52 | NUR ---
HR 123 NOTED. METOPROLOL GIVEN PER ORDERS.
--- NOTE | 2019-02-25 03:58 | NUR ---
CRUSHED MEDS IN PUDDING ABLE TO SWALLOW WITH SLIGHT DIFFICULTY. NURSE AT BEDSIDE.
[2019-02-25 05:14] VITALS: BP 140/68
[2019-02-25 06:44] LABS: HEMATOCRIT 33.1 % (36.0-48.0); HEMOGLOBIN 11.4 g/dL (12-16); MCHC 34.4 g/dL (31.0-37.0); MCV 89.9 fL (80.0-100.0); MEAN PLATELET VOLUME 9.3 fL (7.4-10.4); PLATELET COUNT 281 10x3/uL (130-400); RBC 3.68 10x6/uL (4.00-5.40); WBC 8.8 10x3/uL (4.8-10.8)
[2019-02-25 07:06] LABS: CALCIUM 9.3 mg/dL (8.5-10.1); CARBON DIOXIDE 26.8 mmol/L (21.0-32.0); CREATININE - SERUM 0.8 mg/dL (0.6-1.3); POTASSIUM - SERUM 3.8 mmol/L (3.5-5.1)
[2019-02-25 07:32] VITALS: BP 147/75
--- NOTE | 2019-02-25 08:00 | NUR ---
RESTING IN BED. ALERT AND ORIENTED BUT APPEARS MORE DROWSY THAN YESTERDAY AND BREATHING MORE LABORED. LUNGS DIMINISHED BILATERALLY. HEART SOUNDS S1 AND S2 HEARD IN ALL OLSON. BOWEL SOUNDS ACTIVE X 4. IV PATENT TO RFA. DENIES NEEDS. BED LOW. FALL PRECAUTIONS IN PLACE. CALL RAMOS AND PERSONAL ITEMS IN REACH. WILL CONTINUE TO MONITOR.
--- NOTE | 2019-02-25 11:19 | NUR ---
CARDIOLOGY NOTIFIED THAT PATIENT HR NOTED TO BE UP TO 122 BUT GREATER THAN 100 FOR PAST SEVERAL DAYS IN CASE WANT TO ADJUST MEDICATIONS PER NURSING ORDER. DR RUIZ STATES "OK." NO ORDERS AT THIS TIME.
--- NOTE | 2019-02-25 11:26 | NUR ---
N/O LOPRESSOR 5OMG BID.
[2019-02-25 11:48] LABS: LYMPHOCYTES 7 % (15-50); MONOCYTES 19 % (2-11); NEUTROPHILS 70 % (40-80); PLATELET ESTIMATE NORMAL
[2019-02-25 11:49] LABS: ACANTHOCYTES OCC; ANISOCYTOSIS 1+; CRENATED CELLS OCC; ROULEAUX OCC
--- NOTE | 2019-02-25 12:54 | NUR ---
OT NOTE: EXTENSIVE CONVERSATION WITH [facility] TODAY. THEY REPORTED THAT PT CONTINUES TO CONSUME VERY MINIMAL AMOUNT OF FOOD. PT TOLD THEM YESTERDAY THAT SHE WAS NOT GOING TO EAT IF SHE DIDNT WANT TO AND THAT SHE WAS AWARE OF THE CONSEQUENCES. HOWEVER, WHEN PT WAS ASKED IF SHE WANTED TO GET UP, SHE STATED YES. MAX ASSIST WITH BED MOB AND SUPINE TO SIT; MOD ASSIST WITH STATIC SITTING BALANCE ON EOB TODAY. SIT TO STAND AND TRANSFER WITH MAX ASSIST. ABLE TO PERFORM SIMPLE GROOMING TASKS ( WASHING FACE AND HANDS WITH CLOTH) WITH SET UP; EXTENSIVE ASSIST WITH TOILET HYGIENE..SCANT AMOUNT OF BM ON BED PAD.. NO DIARRHEA NOTED TODAY. PT IS VERY WEAK BECAUSE OF LIMITED PO INTAKE. INCREASED CONFUSION ALSO NOTED TODAY. KEATON HORN, OTR/L [phone]
--- NOTE | 2019-02-25 15:28 | MORECARE ---
CASE MANAGEMENT DISCHARGE SUMMARY PATIENT: JESE SQUIRES UNIT: [id number] ADM DATE: 02/15/19 AGE: 88 : 30 SEX: F ROOM/BED: D.2220 AUTHOR: SONYA,DOC PHYSICIAN: REFERRING PHYSICIAN: BRANDY IBARRA MD DATE OF SERVICE: 02/25/19 Discharge Plan Patient Name: JESE SQUIRES Facility: [facility]:[place] : 1930 Planned Disposition: Detention Facility Anticipated Discharge Date: Discharge Date: Expected LOS: Initial Reviewer: [email or web address] Initial Review Date: 02/19/2019 Generated: 02/25/19 4:27 pm Comments DCP- Discharge Planning Updated by [email or web address]: Queta Pena on 02/24/19 11:[address] PATIENT WILL BE ACCEPTED TO [facility] IN [place], BUT WILL NEED TO KNOW IF SHE THINKS SHE COULD TRANSPORT IN WHEELCHAIR FOR A [address] CM TO FOLLOW AND ASSIST DCP- Discharge Planning Updated by [email or web address]: Queta Pena on 02/23/19 11:[address] SPOKE WITH PATIENT AND DAUGHTER ABOUT DC PLAN, THEY WOULD LIKE TO GO TO [facility] IN [place], [place]. I CALLED [facility] AND SPOKE WITH LEIF ([phone]) AND FAXED REFERRAL TO [phone]. ADRIANNE SIGNED AND PLACED ON CHART. CM WILL CONTINUE TO FOLLOW AND ASSIST WITH DC PLANNIGN DCP- Discharge Planning Updated by [id number]: Crystal Chou on 02/20/19 7:[address] Updated clinical faxed to [facility]. They will accept when medically stable for discharge, family notified. CM will continue to follow and assist with discharge planning/needs. DCP- Discharge Planning Updated by [email or web address]: Crystal Chou on 02/19/19 11:[address] Patient Name: JESE SQUIRES Admission Status: ER Accout number: [id number] Admission Date: 02-15-2019 : 1930 Admission Diagnosis: Attending: BRANDY IBARRA Current LOS: 4 Anticipated DC Date: Planned Disposition: Detention Facility Primary Insurance: [employer] CHOICE PPO MCR ADVANT Discharge Planning Comments: CM met with patient and her son to discuss discharge planning. Patient is drowsy during the assessment. Patient lives alone at home. Son states she had a kyphoplasty about 6 weeks ago, and has not really bounced back from having the Kyphoplasty. CM discussed availability of inpatient rehab, SNF, home health and additional DME needs. Son states they would like a referral to [facility]. He states he has already spoken to the workers compensation administrator there. ADRIANNE signed for [facility]. I called and spoke to cynthia Palacios for [facility], and clinical faxed. CM will continue to follow and assist with discharge planning/needs. Tail Worker: Crystal José Antonio [facility] - Discharge Planning Initial Assessment Updated by [email or web address]: Crystal Chou on 02/19/19 12:25 pm * Is the patient Alert and Oriented? No * How many steps to enter\exit or inside your home? 10 * PCP Dr. Santizo * Pharmacy [facility] * Preadmission Environment Home Alone * ADLs Partial Dependent * Partial ADLs (Assistance needed) Ambulation * Equipment Cane Walker Wheelchair * List name and contact numbers for known caregivers / representatives who currently or will assist patient after discharge: Ko Squires - son - [phone] Fahad Chowdary [facility] - [phone] * Verbal permission to speak to the caregivers and representatives has been obtained from the patient. Yes * Community resources currently utilized None * Additional services required to return to the preadmission environment? Yes * Can the patient safely return to the preadmission environment? No * Has this patient been hospitalized within the prior 30 days at any hospital? No Coverage Notice Reviewer: [id number] - Crystal Chou Notice Issued Date-Time: 02/19/2019 12:22 Notice Type: Patient Choice Letter Notice Delivered To: Family Member Relationship to Patient: Son Oil Pump Station Operator Chief Name: Ko Squires Delivery Method: HAND - Hand Delivered Marisol Days: Prior Verbal Notification: Recipient Understood Notice: Yes Recipient Signature: Yes Med Rec Note Co-signed by Attending: Coverage Notice Comment: [facility] Reviewer: [id number] Wilfrid Pena Notice Issued Date-Time: 02/23/2019 11:20 Notice Type: Patient Choice Letter Notice Delivered To: Patient Relationship to Patient: Oil Pump Station Operator Chief Name: Delivery Method: HAND - Hand Delivered Marisol Days: Prior Verbal Notification: Recipient Understood Notice: Yes Recipient Signature: Yes Med Rec Note Co-signed by Attending: Coverage Notice Comment: PT CHOICE LETTER TO [facility] [place] Reviewer: [email or web address] Wilfrid Pena Notice Issued Date-Time: 02/25/2019 14:30 Notice Type: IM Discharge Notice Notice Delivered To: Family Member Relationship to Patient: Daughter Oil Pump Station Operator Chief Name: luz Delivery Method: HAND - Hand Delivered Marisol Days: Prior Verbal Notification: Recipient Understood Notice: Yes Recipient Signature: Yes Med Rec Note Co-signed by Attending: Coverage Notice Comment: Imm served and explained, signed copy placed in chart signed by daughter (sheree) Last DP export: 02/24/19 11:50 am Patient Name: JESE SQUIRES Page [id number] at 1528 All edits/amendments must be made on the electronic document DICTATION DATE: 02/25/19 1527 FEATHER EDGER: ASHLEY 02/25/19 1527 RPT#: [id number] DC DATE: STATUS: ADM IN [facility] [address] [place] [address] END OF REPORT
[2019-02-25] MEDS ORDERED: Nystatin Oral Susp [ PO (15:34)
[2019-02-25] MEDS ORDERED: CLEOCIN HCL300 MG PO (15:34)
[2019-02-25] MEDS ORDERED: Levaquin PO (15:34)
[2019-02-25] MEDS ORDERED: MUCINEX600 MG PO (15:35)
[2019-02-25] MEDS ORDERED: LIDODERM 5 %1 PATCH TRANSDERM (15:35)
[2019-02-25] MEDS ORDERED: MEGACE400 MG/10 PO (15:35)
[2019-02-25] MEDS ORDERED: TESSALON PERLE100 MG PO (15:35)
[2019-02-25] MEDS ORDERED: FLORAJEN3 CAPS460 MG PO (15:35)
[2019-02-25] MEDS ORDERED: CALMOSEPTINE OI71 GM TOPICAL (15:36)
--- NOTE | 2019-02-25 15:37 | MORECARE ---
CASE MANAGEMENT DISCHARGE SUMMARY PATIENT: JESE SQUIRES UNIT: [id number] ADM DATE: 02/15/19 AGE: 88 : 30 SEX: F ROOM/BED: D.2220 AUTHOR: SONYA,DOC PHYSICIAN: REFERRING PHYSICIAN: BRANDY IBARRA MD DATE OF SERVICE: 02/25/19 Discharge Plan Patient Name: JESE SQUIRES Facility: [facility]:[place] : 1930 Planned Disposition: Intermediate Facility Anticipated Discharge Date: Discharge Date: Expected LOS: Initial Reviewer: [email or web address] Initial Review Date: 02/19/2019 Generated: 02/25/19 4:37 pm Comments DCP- Discharge Planning Updated by [id number]: Queta Pena on 02/25/19 2:[address] PATIENT WILL BE DISCHARGING TO [facility] TO A SKILLED BED VIA AMBULANCE. THE NURSE WILL NEED TO CALL REPORT TO THE [address] [place] [address] NURSE PATIENT WILL NEED TO GO VIA AMBULANCE BECAUSE SHE WILL NOT BE ABLE TO WITHSTAND THE [address], SHE IS ON 2 L OF O2 AND DOES NOT HAVE ANY AT HOME AND IS ON TELEMETRY. CM TO FOLLOW AND ASSIST WITH DC PLANNING NEEDED DCP- Discharge Planning Updated by [id number]: Queta Pena on 02/24/19 11:[address] PATIENT WILL BE ACCEPTED TO [facility] IN [place], BUT WILL NEED TO KNOW IF SHE THINKS SHE COULD TRANSPORT IN WHEELCHAIR FOR A [address] CM TO FOLLOW AND ASSIST DCP- Discharge Planning Updated by [email or web address]: Queta Pena on 02/23/19 11:[address] SPOKE WITH PATIENT AND DAUGHTER ABOUT DC PLAN, THEY WOULD LIKE TO GO TO [facility] IN [place], [place]. I CALLED [facility] AND SPOKE WITH LEIF ([phone]) AND FAXED REFERRAL TO [phone]. ADRIANNE SIGNED AND PLACED ON CHART. CM WILL CONTINUE TO FOLLOW AND ASSIST WITH DC PLANNIGN DCP- Discharge Planning Updated by [email or web address]: Crystal Chou on 02/20/19 7:[address] Updated clinical faxed to [facility]. They will accept when medically stable for discharge, family notified. CM will continue to follow and assist with discharge planning/needs. DCP- Discharge Planning Updated by [email or web address]: Crystal Chou on 02/19/19 11:[address] Patient Name: JESE SQUIRES Admission Status: ER Accout number: [id number] Admission Date: 02-15-2019 : 1930 Admission Diagnosis: Attending: BRANDY IBARRA Current LOS: 4 Anticipated DC Date: Planned Disposition: Intermediate Facility Primary Insurance: [employer] CHOICE PPO MCR ADVANT Discharge Planning Comments: CM met with patient and her son to discuss discharge planning. Patient is drowsy during the assessment. Patient lives alone at home. Son states she had a kyphoplasty about 6 weeks ago, and has not really bounced back from having the Kyphoplasty. CM discussed availability of inpatient rehab, SNF, home health and additional DME needs. Son states they would like a referral to [facility]. He states he has already spoken to the logistics administrator there. ADRIANNE signed for [place]. I called and spoke to cynthia Palacios for [place], and clinical faxed. CM will continue to follow and assist with discharge planning/needs. Copra Processor: Crystal Chou DCPIA - Discharge Planning Initial Assessment Updated by [email or web address]: Crystal Chou on 02/19/19 12:25 pm * Is the patient Alert and Oriented? No * How many steps to enter\exit or inside your home? 1/0 * PCP Dr. Santizo * Pharmacy [facility] * Preadmission Environment Home Alone * ADLs Partial Dependent * Partial ADLs (Assistance needed) Ambulation * Equipment Cane Walker Wheelchair * List name and contact numbers for known caregivers / representatives who currently or will assist patient after discharge: Ko Squires - son - [phone] Fahad Chowdary [facility] - [phone] * Verbal permission to speak to the caregivers and representatives has been obtained from the patient. Yes * Community resources currently utilized None * Additional services required to return to the preadmission environment? Yes * Can the patient safely return to the preadmission environment? No * Has this patient been hospitalized within the prior 30 days at any hospital? No Coverage Notice Reviewer: [id number] - Crystal Chou Notice Issued Date-Time: 02/19/2019 12:22 Notice Type: Patient Choice Letter Notice Delivered To: Family Member Relationship to Patient: Son Hair Cutter Name: Ko Squires Delivery Method: HAND - Hand Delivered Marisol Days: Prior Verbal Notification: Recipient Understood Notice: Yes Recipient Signature: Yes Med Rec Note Co-signed by Attending: Coverage Notice Comment: [facility] Reviewer: [id number] Wilfrid Pena Notice Issued Date-Time: 02/25/2019 14:30 Notice Type: IM Discharge Notice Notice Delivered To: Family Member Relationship to Patient: Daughter Hair Cutter Name: luz Delivery Method: HAND - Hand Delivered Marisol Days: Prior Verbal Notification: Recipient Understood Notice: Yes Recipient Signature: Yes Med Rec Note Co-signed by Attending: Coverage Notice Comment: Imm served and explained, signed copy placed in chart signed by daughter (poa) Reviewer: [id number] Wilfrid Pena Notice Issued Date-Time: 02/23/2019 11:20 Notice Type: Patient Choice Letter Notice Delivered To: Patient Relationship to Patient: Hair Cutter Name: Delivery Method: HAND - Hand Delivered Marisol Days: Prior Verbal Notification: Recipient Understood Notice: Yes Recipient Signature: Yes Med Rec Note Co-signed by Attending: Coverage Notice Comment: PT CHOICE LETTER TO [facility] DP export: 02/25/19 2:28 pm Patient Name: JESE SQUIRES Page [id number] at 1537 All edits/amendments must be made on the electronic document DICTATION DATE: 02/25/19 1537 SCHOOL OCCUPATIONAL THERAPIST: ASHLEY 02/25/19 1537 RPT#: [id number] DC DATE: STATUS: ADM IN [facility] [address] [place] [address] END OF REPORT
--- NOTE | 2019-02-25 15:51 | NUR ---
OT NOTE: PT COMPLETED BED MOB WITH MIN-MOD A. PT COMPLETED BED TO CHAIR TRANSFER WITH MOD-MAX A. PT COMPLETED FACE WASH WITH SETUP . PT COMPLETED UE AROM AXS. FAMILY STATED THAT PT HAD SEVERAL BM THE PREVIOUS DAY. [id number] THANK YOU,ELIEZER ANDREW
[2019-02-25 16:05] VITALS: BP 139/64
--- NOTE | 2019-02-25 17:11 | NUR ---
DC EDUCATION PROVIDED BOTH WRITTEN AND VERBAL TO PATIENT AND FFAMILY MEMBER AT BEDSIDE. DC PAPERWORK SIGNED BY FAMILY MEMBER AT BEDSIDE PER PATIENT REQUEST. PATIENT AND FAMILY MEMBER DENY FURTHER QUESTIONS. IV REMOVED FROM [facility] WITH TIP INTACT. AMBULANCE TO P/U AT 1800.
--- NOTE | 2019-02-25 17:19 | NUR ---
REPORT CALLED TO RN AT [facility]. DENIES FURTHER QUESTIONS.
--- NOTE | 2019-02-25 18:15 | NUR ---
PATIENT DISCHARGED VIA EMS WITH ALL BELONGINGS.
--- NOTE | 2019-02-26 14:04 | EC ---
PATIENT:JESE SQUIRES DATE OF SERVICE: 02/15/19 SEX: F MEDICAL RECORD: [id number] DATE OF : 30 LOCATION:[facility] [place] AGE OF PATIENT: 88 ADMISSION DATE: 02/15/19 REFERRING PHYSICIAN: INTERPRETING PHYSICIAN: ED LIU MD ECHOCARDIOGRAM REPORT ECHO CHARGES 4 ECHO COMPLETE Date: 02/25/19 CLINICAL DIAGNOSIS: TACHYCARDIA ECHOCARDIOGRAPHIC MEASUREMENTS (adult normal given) AC root (d.<3.7cm) 3.3 cm LV Septum d (<1.2 cm> 1.2 cm Valve Excursion 1.4 cm LV Septum (systole) 1.5 cm Left Atria (s.<4.0cm> 3.4 cm LVPW d(<1.2cm) 1.2 cm RV (d.<2.3cm) 3.1 cm LVPW (sytole) 1.7 cm LV diastole(<5.6CM) 3.7 cm MV E-F(>70mm/sec) cm LV systole 2.5 cm LVOT Diameter 1.5 cm MV exc.(>10mm) cm Est.ejection fraction (50-75%) % DOPPLER: LVIT cm/sec A 46.0 cm/sec E 74.0 cm/sec LA cm/sec RVSP 37 mmHg LVOT cm/sec AOP1/2T m/s Asc. Ao cm/sec RVOT 66 cm/sec RA cm/sec PA 84 cm/sec AV Gradient Peak mmHg AV Mean mmHg AV Area cm MV Gradient Peak 4.52 mmHg MV Mean 1.96 mmHg MV Area cm COMMENTS: Merchandising Consultant: Ginna LLANOS Hand Bindery Assembly Worker: 1 Dr. Liu TAPE# PACS Pericardial Effusion N DATE OF SERVICE: 02/25/2019 FINDINGS: 1. Left ventricular chamber size is within normal limits. Left ventricular systolic function is normal at 55% to 60%. 2. Left atrium, right atrium, and right ventricular chamber sizes are within normal limits. 3. Valvular structures have normal structure and motion. 4. Doppler interrogation reveals mild tricuspid regurgitation, no other valvular insufficiency or stenosis. ECHOCARDIOGRAM REPORT [id number] JESE SQUIRES 5. No evidence of pericardial effusion or left ventricular thrombus. TRANSINT:[id number] Voice Confirmation ID: [id number] DOCUMENT ID: [id number] ED LIU MD at 1404 CC: [id number] DICTATION DATE: 02/25/19 1625 BINDERY MACHINE SETTER/SET UP OPERATOR: 02/26/19 0240 DIS IN 02/25/19 [place] [id number] [place] [id number]
--- NOTE | 2019-02-27 07:44 | MORECARE ---
CASE MANAGEMENT DISCHARGE SUMMARY PATIENT: JESE SQUIRES UNIT: [id number] ADM DATE: 02/15/19 AGE: 88 : 30 SEX: F ROOM/BED: D.2220 AUTHOR: SONYA,DOC PHYSICIAN: REFERRING PHYSICIAN: BRANDY IBARRA MD DATE OF SERVICE: 02/27/19 Discharge Plan Patient Name: JESE SQUIRES Facility: [facility]:[place] : 1930 Planned Disposition: Mcfp Facility Anticipated Discharge Date: Discharge Date: 02/25/2019 Expected LOS: 0 Initial Reviewer: [email or web address] Initial Review Date: 02/19/2019 Generated: 02/27/19 8:44 am Comments DCP- Discharge Planning Updated by [email or web address]: Queta Pena on 02/25/19 2:[address] PATIENT WILL BE DISCHARGING TO [facility] TO A SKILLED BED VIA AMBULANCE. THE NURSE WILL NEED TO CALL REPORT TO THE [address] [place] [address] NURSE PATIENT WILL NEED TO GO VIA AMBULANCE BECAUSE SHE WILL NOT BE ABLE TO WITHSTAND THE [address], SHE IS ON 2 L OF O2 AND DOES NOT HAVE ANY AT HOME AND IS ON TELEMETRY. CM TO FOLLOW AND ASSIST WITH DC PLANNING NEEDED DCP- Discharge Planning Updated by [id number]: Queta Pena on 02/24/19 11:[address] PATIENT WILL BE ACCEPTED TO [facility] IN [place], BUT WILL NEED TO KNOW IF SHE THINKS SHE COULD TRANSPORT IN WHEELCHAIR FOR A [address] CM TO FOLLOW AND ASSIST DCP- Discharge Planning Updated by [email or web address]: Queta Pena on 02/23/19 11:[address] SPOKE WITH PATIENT AND DAUGHTER ABOUT DC PLAN, THEY WOULD LIKE TO GO TO [facility] IN [place], [place]. I CALLED [facility] AND SPOKE WITH LEIF ([phone]) AND FAXED REFERRAL TO [phone]. ADRIANNE SIGNED AND PLACED ON CHART. CM WILL CONTINUE TO FOLLOW AND ASSIST WITH DC PLANNIGN DCP- Discharge Planning Updated by [id number]: Crystal Chou on 02/20/19 7:[address] Updated clinical faxed to [facility]. They will accept when medically stable for discharge, family notified. CM will continue to follow and assist with discharge planning/needs. DCP- Discharge Planning Updated by [id number]: Crystal José Antonio on 02/19/19 11:[address] Patient Name: JESE SQUIRES Admission Status: ER Accout number: [id number] Admission Date: 02-15-2019 : 1930 Admission Diagnosis: Attending: BRANDY IBARRA Current LOS: 4 Anticipated DC Date: Planned Disposition: Mcfp Facility Primary Insurance: [employer] CHOICE PPO MCR ADVANT Discharge Planning Comments: CM met with patient and her son to discuss discharge planning. Patient is drowsy during the assessment. Patient lives alone at home. Son states she had a kyphoplasty about 6 weeks ago, and has not really bounced back from having the Kyphoplasty. CM discussed availability of inpatient rehab, SNF, home health and additional DME needs. Son states they would like a referral to [facility]. He states he has already spoken to the cyber systems administrator there. ADRIANNE signed for [place]. I called and spoke to cynthia Palaciso for [place], and clinical faxed. CM will continue to follow and assist with discharge planning/needs. Manager Action: Crystal José Antonio DCPIA - Discharge Planning Initial Assessment Updated by [email or web address]: Crystal Chou on 02/19/19 12:25 pm * Is the patient Alert and Oriented? No * How many steps to enter\exit or inside your home? 1/0 * PCP Dr. Santizo * Pharmacy [facility] * Preadmission Environment Home Alone * ADLs Partial Dependent * Partial ADLs (Assistance needed) Ambulation * Equipment Cane Walker Wheelchair * List name and contact numbers for known caregivers / representatives who currently or will assist patient after discharge: Ko Squires - son - [phone] Fahad Chowdary - DTR - [phone] * Verbal permission to speak to the caregivers and representatives has been obtained from the patient. Yes * Community resources currently utilized None * Additional services required to return to the preadmission environment? Yes * Can the patient safely return to the preadmission environment? No * Has this patient been hospitalized within the prior 30 days at any hospital? No Coverage Notice Reviewer: [email or web address] Wilfrid Chou Notice Issued Date-Time: 02/19/2019 12:22 Notice Type: Patient Choice Letter Notice Delivered To: Family Member Relationship to Patient: Son Manager Telemarketing Name: Ko Squires Delivery Method: HAND - Hand Delivered Marisol Days: Prior Verbal Notification: Recipient Understood Notice: Yes Recipient Signature: Yes Med Rec Note Co-signed by Attending: Coverage Notice Comment: [facility] for [facility] Reviewer: [id number] Wilfrid Pena Notice Issued Date-Time: 02/23/2019 11:20 Notice Type: Patient Choice Letter Notice Delivered To: Patient Relationship to Patient: Manager Telemarketing Name: Delivery Method: HAND - Hand Delivered Marisol Days: Prior Verbal Notification: Recipient Understood Notice: Yes Recipient Signature: Yes Med Rec Note Co-signed by Attending: Coverage Notice Comment: PT CHOICE LETTER TO [facility] IN [place] Reviewer: [id number] Wilfrid Pena Notice Issued Date-Time: 02/25/2019 14:30 Notice Type: IM Discharge Notice Notice Delivered To: Family Member Relationship to Patient: Daughter Manager Telemarketing Name: luz Delivery Method: HAND - Hand Delivered Marisol Days: Prior Verbal Notification: Recipient Understood Notice: Yes Recipient Signature: Yes Med Rec Note Co-signed by Attending: Coverage Notice Comment: Imm served and explained, signed copy placed in chart signed by daughter (sheree) Last DP export: 02/25/19 2:37 pm Patient Name: JESE SQUIRES Page [phone] at 0744 All edits/amendments must be made on the electronic document DICTATION DATE: 02/27/1944 FISHER EEL SPEAR: ASHLEY 02/27/19 0744 RPT#: [id number] DC DATE:02/25/19 STATUS: DIS IN [facility] [address] [place] [address] END OF REPORT
== END 2019-02-25 18:44 | DRG 391 ==
LOC: D.ER 11:33 → D.MS 13:28
PROVIDERS: Emergency Medicine; Internal Medicine Gastroenterology; Internal Medicine Pulmonary Disease; ADMIT Internal Medicine Nephrology; ATTEND Internal Medicine Nephrology
PROC: 0DB98ZX Excision of Duodenum, Via Natural or Artificial Opening Endoscopic, Diagnostic (ICD-10-PCS; 2019-02-16)
PROC: 0D758ZZ Dilation of Esophagus, Via Natural or Artificial Opening Endoscopic (ICD-10-PCS; principal; 2019-02-16 07:05)
DX: K22.2 Esophageal obstruction (principal); E43 Unspecified severe protein-calorie malnutrition; J18.9 Pneumonia, unspecified organism; J81.0 Acute pulmonary edema; E87.1 Hypo-osmolality and hyponatremia; I48.20 Chronic atrial fibrillation, unspecified; J45.901 Unspecified asthma with (acute) exacerbation; K21.0 Gastro-esophageal reflux disease with esophagitis; K22.8 Other specified diseases of esophagus; D64.9 Anemia, unspecified; I10 Essential (primary) hypertension; I48.91 Unspecified atrial fibrillation; K21.9 Gastro-esophageal reflux disease without esophagitis; F03.90 Unspecified dementia, unspecified severity, without behavioral disturbance, psychotic disturbance, mood disturbance, and anxiety; E87.6 Hypokalemia